=== PATIENT | female | born 1955 | race Caucasian/White ===

== ENCOUNTER 2017-05-03 21:42 | Emergency (ER) | payer OTHER ==
[2017-05-04] MEDS ORDERED: cefTRIAXone(*) 1 GM in NS 0.9% 50 ML* 50 ML IVPB ONE (01:03)
--- NOTE | 2017-05-04 01:03 | UC ---
Skin Complaint HPI - HPI Summary HPI Summary: bug bite on outer aspect of right lower leg 2 days ago---seen at urgent care and has taken 5 doses of Keflex---patient has pain out of proportion to injury in lower leg and reports the erythema has doubled in size today--feels feverish and uncomfortable - History of Current Complaint Chief Complaint: EDExtremityLower Time Seen by Provider: 05/04/17 00:53 Stated Complaint: BUG BITE/RIGHT LEG Hx Obtained From: Patient ?: No Onset/Duration: Sudden Onset, Lasting Days - 2, Worse Since - today Skin Exposure Onset/Duration: Days Ago - 2 Timing: Constant Onset Severity: Mild Current Severity: Moderate Pain Intensity: 8 Location: Discrete - right lowerer lateral leg Character: Pain, Redness Aggravating: Touch Alleviating: Treatment LAWYER: - keflex Associated Signs & Symptoms: Positive: Fever - subjective, Chills, Tenderness. Negative: Red Streaks Related History: Insect Bite/Sting - Allergy/Home Medications Allergies/Adverse Reactions: Allergies Allergy/AdvReac Type Severity Reaction Status Date / Time Ondansetron [From Zofran] Allergy Unknown Verified 06/15/14 06:25 Reaction Details Sulfa Antibiotics Allergy Rash Verified 06/15/14 06:25 Review of Systems Constitutional: Fever - subjective, Chills, Fatigue Skin: Other - worsening erythema and pain right lower leg Eyes: Negative ENT: Negative Respiratory: Negative Cardiovascular: Negative Gastrointestinal: Negative Genitourinary: Negative Motor: Negative Neurovascular: Negative Musculoskeletal: Negative Neurological: Negative Psychological: Negative All Other Systems Reviewed And Are Negative: Yes PMH/Surg Hx/FS Hx/Imm Hx Previously Healthy: No Endocrine History: Hypothyroidism - Surgical History Surgical History: Yes Surgery Procedure, Year, and Place: . ECTOPIC . [place] [facility] [place] - Family History Known Family History: Positive: None Family History: no cardiovascular issues reported in family lineage - Social History Occupation: Employed Full-time Lives: With Family Alcohol Use: Daily Alcohol Amount: 1 PER DAY Substance Use Type: None Smoking Status (MU): Former Smoker Amount Used/How Often: PACK A DAY Have You Smoked in the Last Year: No When Did the Patient Quit Smoking/Using Tobacco: 18 YEARS AGO Physical Exam Triage Information Reviewed: Yes Appearance: Well-Nourished, Ill-Appearing, Pain Distress Vital Signs: Initial Vital Signs Temp 99.5 F 05/03/17 21:56 Pulse 87 05/03/17 21:56 Resp 18 05/03/17 21:56 BP 146/97 05/03/17 21:56 Pulse Ox 97 05/03/17 21:56 Vital Signs Reviewed: Yes Eye Exam: Normal Eyes: Positive: Conjunctiva Clear ENT Exam: Normal ENT: Positive: Normal ENT inspection, Hearing grossly normal. Negative: Nasal congestion, Nasal drainage, Trismus, Muffled/hoarse voice Dental Exam: Normal Neck exam: Normal Neck: Positive: 1 Respiratory Exam: Normal Respiratory: Positive: Chest non-tender, No respiratory distress, No accessory muscle use Cardiovascular Exam: Normal Cardiovascular: Positive: RRR, No Murmur, Pulses Normal, Brisk Capillary Refill Musculoskeletal Exam: Normal Musculoskeletal: Positive: Strength Intact, ROM Intact, No Edema Neurological Exam: Normal Neurological: Positive: Alert, Muscle Tone Normal Psychological Exam: Normal Psychological: Positive: Normal Response To Family Skin Exam: Other - lower outer aspect of right leg Skin: Positive: significant lesion(s) Re-Evaluation - Re-Evaluation First Eval Change: Unchanged - report to Dr. Frank for continued care Course/Dx - Course Course Of Treatment: case reported to Dr. Willis to assume care - Differential Diagnoses - Skin Complaint Differential Diagnoses: Abscess, Cellulitis, Contact Dermatitis, Impetigo, Poison Nadia, Tick Born Illness - Diagnoses Provider Diagnoses: cellulitis Discharge - Discharge Plan Condition: Stable Disposition: HOME Patient Education Materials: Cellulitis (ED) Referrals: Gerardo Velásquez MD [Primary Care Provider] - 3 Days Additional Instructions: Continue course of treatment with Keflex at home.
[2017-05-04] MEDS ORDERED: NS 0.9% 1000 ML* 1,000 ML IV SCH (01:15)
[2017-05-04 02:17] LABS: Hematocrit 38 % (35-47); Mean Corpuscular HGB Conc 34 g/dl (31-36); Mean Corpuscular Hemoglobin 32 pg (27-31); Mean Corpuscular Volume 95 fL (80-97); Mean Platelet Volume 8 um3 (7.4-10.4); Red Blood Count 4.04 10^6/ul (4.0-5.4); Red Cell Distribution Width 14 % (10.5-15); White Blood Count 9.1 10^3/ul (3.5-10.8)
[2017-05-04 02:28] LABS: Albumin 4.5 g/dL (3.2-5.2); BUN/Creatinine Ratio 20.5 (8-20); C Reactive Protein 27.09 mg/L (< 5.00); Calcium 9.5 mg/dL (8.6-10.3); EGFR Non-African American 65.3 (>60); Globulin 2.9 g/dL (2-4); Potassium 3.8 mmol/L (3.5-5.0); Total Bilirubin 1.7 mg/dL (0.2-1.0); Total Protein 7.4 g/dL (6.4-8.9)
[2017-05-04] MEDS ORDERED: Acetaminophen TAB* 325 MG PO ONE (03:30)
[2017-05-04 04:47] VITALS: BP 128/64
--- NOTE | 2017-05-04 08:04 | RAD ---
Indication: Soft tissue swelling. 2 views of the right lower leg demonstrates no fracture. No other bone or joint abnormality is identified. IMPRESSION: No fracture of the right lower leg is noted.
== END 2017-05-04 04:44 | disposition home or self-care (01) ==
LOC: ED 21:42
DX: L03.90 Cellulitis, unspecified (principal); R50.9 Fever, unspecified; R68.83 Chills (without fever); Z87.891 Personal history of nicotine dependence
CPT/HCPCS: 36415; 80053; 83605; 85025; 86140; 87040; 99283; A9270-GY; J0696

== ENCOUNTER 2017-05-28 12:37 | Inpatient (IN) | payer OTHER ==
[2017-05-28] MEDS ORDERED: NS 0.9% 1000 ML* 1,000 ML IV ONE ×2 (14:17→18:16)
[2017-05-28] MEDS ORDERED: Ketorolac INJ* 30 MG/ML 1 ML VIAL IV ONE (14:18)
[2017-05-28 14:37] LABS: Urine Bacteria Absent (Absent)
[2017-05-28] MEDS ORDERED: Morphine INJ* 4 MG/ML 1 ML SYRINGE IV ONE (16:04)
--- NOTE | 2017-05-28 16:07 | RAD ---
CLINICAL HISTORY: Hematuria and lower abdominal pain x2 days COMPARISON: CT abdomen pelvis dated December 20, 2015 TECHNIQUE: Noncontrast CT examination of the abdomen and pelvis from the lung bases through the initial tuberosities. FINDINGS: VISUALIZED LUNG BASES: The visualized lung bases are grossly clear. There is no pleural effusion. ABDOMEN AND PELVIS: Evaluation of the solid organs and vasculature is limited without intravenous contrast. Similar the prior CT examination, the liver is homogenously hypoattenuating. The spleen, pancreas and adrenal glands are grossly normal in appearance. The gallbladder is normal. The left kidney is normal in appearance without focal mass, calcification or signs of hydronephrosis. There is mild to moderate right renal hydronephrosis with mild perinephric stranding. The right ureter is mildly dilated up to 6 mm in diameter exhibiting a mild degree of periureteral stranding. No renal calculi are identified in the right collecting system, ureter or the urinary bladder. The small and large bowel are not distended.The patient's normal appendix is identified in the right lower quadrant (coronal image 42). There is no gross retroperitoneal or mesenteric lymphadenopathy. The pelvic viscera is normal in appearance. The abdominal aorta and iliac arteries are normal in course and diameter. 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 Intramuscular lipoma which appears to be house within the sheath of the right rectus femoris measures up to 6 x 6 cm in the axial plane (image 198). Degenerative changes include multilevel loss of intervertebral disc height involving the lower thoracic and lumbar spine. Degenerative changes are most advanced at L3/L4 and L2/L3.. There is a stable vertebral body hemangioma at the T11 vertebral body.There are no sinister bone lesions. IMPRESSION: 1. There is mild to moderate right renal hydronephrosis with perinephric stranding extending down along the right ureter. No renal calculus is identified. These findings could be due to a recently passed renal stone or could be seen in the setting of pyelonephritis. 2. 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 3. Hepatic steatosis. 4. Additional chronic and degenerative changes described in the body of the report.
[2017-05-28] MEDS ORDERED: Phenazopyridine TAB* 100 MG PO ONE (16:13)
[2017-05-28] MEDS ORDERED: cefTRIAXone(*) 1 GM in NS 0.9% 50 ML* 50 ML IVPB ONE (16:13)
[2017-05-28 17:33] LABS: Corrected Retic Count 1.7 % (0.5-1.5); Hematocrit 39 % (35-47); Hemoglobin 13.2 g/dl (12.0-16.0); Maturation Factor Retic 1.5; Mean Corpuscular HGB Conc 34 g/dl (31-36); Mean Corpuscular Hemoglobin 32 pg (27-31); Mean Corpuscular Volume 95 fL (80-97); Mean Platelet Volume 9 um3 (7.4-10.4); Red Blood Count 4.06 10^6/ul (4.0-5.4); Red Cell Distribution Width 13 % (10.5-15)
[2017-05-28 17:45] LABS: Albumin 4.2 g/dL (3.2-5.2); BUN/Creatinine Ratio 15.5 (8-20); C Reactive Protein 16.16 mg/L (< 5.00); Calcium 8.8 mg/dL (8.6-10.3); EGFR African American 75.1 (>60); EGFR Non-African American 58.4 (>60); Globulin 2.9 g/dL (2-4); Potassium 3.9 mmol/L (3.5-5.0); Total Bilirubin 1.8 mg/dL (0.2-1.0); Total Protein 7.1 g/dL (6.4-8.9)
[2017-05-28] MEDS ORDERED: Acetaminophen ADULT LIQ* 650 MG/20.3 ML UDC PO ONE (18:05)
[2017-05-28 18:08] LABS: Comments Flag Yes
[2017-05-28 18:13] LABS: Add Diff/Slide Review? Slide Review Added
[2017-05-28] MEDS ORDERED: Ciprofloxacin 400MG IVPREMIX(* 400 MG/200 ML BAG IVPB ONE (18:26)
[2017-05-28] MEDS ORDERED: NS 0.9% 1000 ML* 2,000 ML IV ONE (18:34)
[2017-05-28] MEDS ORDERED: NS 0.9% 1000 ML* 1,000 ML IV SCH (18:45)
--- NOTE | 2017-05-28 20:04 | ED ---
Nicholas Allen Angela, scribed for Ziyad Chisholm MD on 05/28/17 at 1504 . Abdominal Pain/Female - HPI Summary HPI Summary: 62 y/o female presents to the ED c/o abdominal pain radiating to her R side a/w hematuria x2 days. Pt reports that at onset her urine was pink and had lower abdominal pain. Pt reports blood clots in her urine, subjective fever, chills but denies back pain. Pt denies any history of kidney stones. - History of Current Complaint Chief Complaint: EDAbdPain Stated Complaint: BLOOD IN URINE Time Seen by Provider: 05/28/17 14:43 Hx Obtained From: Patient Onset/Duration: Gradual Onset, Still Present Timing: Constant Pain Intensity: 10 Location: Suprapubic Radiates: Yes Radiates to: RLQ Aggravating Factor(s): Nothing Alleviating Factor(s): Nothing Associated Signs and Symptoms: Positive: Other: - Hematuria. Negative: Back Pain Allergies/Adverse Reactions: Allergies Allergy/AdvReac Type Severity Reaction Status Date / Time Ondansetron [From Zofran] Allergy Unknown Verified 06/15/14 06:25 Reaction Details Sulfa Antibiotics Allergy Rash Verified 06/15/14 06:25 PMH/Surg Hx/FS Hx/Imm Hx Endocrine/Hematology History: Reports: Hx Thyroid Disease Cardiovascular History: Reports: Hx Valvular Heart Disease - MVP Denies: Hx Pacemaker/ICD Respiratory History: Denies: Other Respiratory Problems/Disorders GI History: Denies: Other GI Disorders Musculoskeletal History: Reports: Hx Arthritis - OSTEO, KNEES Sensory History: Reports: Hx Contacts or Glasses - GLASSES Denies: Hx Hearing Aid Opthamlomology History: Reports: Hx Contacts or Glasses - GLASSES Neurological History: Denies: Other Neuro Impairments/Disorders Psychiatric History: Denies: Hx Panic Disorder - Cancer History Hx Chemotherapy: No Hx Radiation Therapy: No - Surgical History Surgery Procedure, Year, and Place: . [place] . [place] [facility] [place] Anesthesia Reactions: Yes - N/V, HEADACHE Infectious Disease History: No Infectious Disease History: Denies: Traveled Outside the [place] in Last 30 Days - Family History Known Family History: Positive: None Family History: no cardiovascular issues reported in family lineage - Social History Alcohol Use: Weekly Alcohol Amount: 1 PER DAY Substance Use Type: Reports: None Smoking Status (MU): Former Smoker Amount Used/How Often: PACK A DAY Have You Smoked in the Last Year: No Review of Systems Positive: Fever, Chills Positive: Abdominal Pain Positive: hematuria Positive: Other - NEGATIVE: back pain All Other Systems Reviewed And Are Negative: Yes Physical Exam - Summary Physical Exam Summary: General: well-appearing, mild pain distress Skin: warm, color reflects adequate perfusion, dry Head: normal Eyes: EOMI, HIGINIO ENT: normal Neck: supple, nontender Respiratory: CTA, breath sounds present Cardiovascular: RRR Abdomen: soft, tenderness to the suprapubic area and RLQ. No flank tenderness. Bowel: present Musculoskeletal: normal, strength/ROM intact Neurological: normal, sensory/motor intact, A&O x3 Psychological: affect/mood appropriate Triage Information Reviewed: Yes Vital Signs On Initial Exam: Initial Vitals Temp Pulse Resp BP Pulse Ox 98.5 F 73 20 146/82 97 05/28/17 12:40 05/28/17 12:40 05/28/17 12:40 05/28/17 12:40 05/28/17 12:40 Vital Signs Reviewed: Yes - [place] Coma Scale Coma Scale Total: 15 Diagnostics - Vital Signs Vital Signs Temp Pulse Resp BP Pulse Ox 05/28/17 14:05 97.4 F 82 16 130/71 98 05/28/17 12:40 98.5 F 73 20 146/82 97 - Laboratory Lab Results: Lab Results 05/28/17 Range/Units 13:50 Urine Color Red A Urine Appearance Cloudy Urine pH TNP Ur Specific [place] 1.011 (1.010-1.030) Urine Protein TNP Urine Ketones TNP Urine Blood TNP Urine Nitrate TNP Urine Bilirubin TNP Urine Urobilinogen TNP Ur Leukocyte Esterase TNP Urine WBC (Auto) Trace(0-5/hpf) (Absent) Urine RBC (Auto) 3+(>10/hpf) H (Absent) Urine Bacteria Absent (Absent) Urine Glucose TNP Urine Ascorbic Acid TNP Result Diagrams: 05/28/17 17:10 05/28/17 17:10 Lab Statement: Any lab studies that have been ordered have been reviewed, and results considered in the medical decision making process. - CT CT Abd/Pelvis CT Interpretation: Positive (See Comments) - IMPRESSION: 1. There is mild to moderate right renal hydronephrosis with perinephric stranding extending down along the right ureter. No renal calculus is identified. These findings could be due to a recently passed renal stone or could be seen in the setting of pyelonephritis. 2. 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 3. Hepatic steatosis. 4. Additional chronic and degenerative changes described in the body of the report. CT Interpretation Completed By: Radiologist Abdominal Pain Fem Course/Dx - Course Course Of Treatment: PATIENT STARTED WITH RIGORS AFTER PO PYRIDIUM AND DURING IV ROCEPHIN. THE ROCEPHIN WAS STOPPED. DISCUSSED WITH DR LOVE. IVF GIVEN AND CIPRO IV ORDERED. HOSPITALIST SAW PATIENT IN ED AND ADMITTED TO ICU. - Diagnoses Provider Diagnoses: Abdominal pain, Pyelonephritis, Sepsis Discharge - Discharge Plan Condition: Guarded Disposition: ADMITTED TO [facility] The documentation as recorded by the Nicholas fountain Angela accurately reflects the service I personally performed and the decisions made by , Ziyad Chisholm MD.
--- NOTE | 2017-05-28 23:20 | HP ---
CC: Dr. Velásquez * HOSPITAL MEDICINE HISTORY AND PHYSICAL: DATE OF ADMISSION: 05/28/17 PRIMARY CARE PHYSICIAN: Dr. Velásquez. ATTENDING PHYSICIAN: Kami Crowell MD *(dictation provided by Jennifer Mclean NP) . CHIEF COMPLAINT: Back, flank pain with hematuria. HISTORY OF PRESENT ILLNESS: Ms. Loza is a 62-year-old female with a past medical history of cold agglutinin disease and hypothyroidism who presents to the hospital today with concern for blood in her urine, weakness, abdominal and flank pain. Ms. Loza states that she began feeling unwell on Thursday at 10 p.m. She noted discomfort in her abdomen that felt like menstrual cramps. She thereafter passed urine that was filled with blood and clots. The next morning she noted that the blood seemed to have improved, but that the urine was very foul smelling. By 5 p.m., she had spoken with Dr. Velásquez and made an appointment for the following day. On Thursday, she saw Dr. Velásquez and it was felt that the urine had improved. She arranged to have labs drawn the following day, which was today at 9:30. Through the day today, she has had increasing pain to the point where she states it is unbearable. The pain seems to be arising from the groin up the left side and then to the flank. She has had nausea and vomiting x1. The patient was called by Dr. Velásquez and told that she should come to the emergency room for evaluation. Labs at that time showed white blood cell count of 9, CRP at 11. In the emergency room, Ms. Loza developed a fever. Her temperature is up to 103.5, she has related tachycardia with a heart rate running almost up to 130. Her blood pressure is running 156/78. She has complained of severe pain in the left side up into the flank that is improved with morphine. She is requiring 2 L of oxygen to maintain an O2 saturation greater than 90%. She has repeat labs showing a leukopenia with white blood cell count of 3 and thrombocytopenia with platelets of 115. She had a CT abdomen and pelvis which showed "mild to moderate right renal hydronephrosis with perinephric stranding extending down along the right ureter. These findings could be due to a recently passed renal stone or could be seen in the setting of pyelonephritis and sepsis secondary to pyelonephritis." The patient was given ceftriaxone and Pyridium in the emergency room and very shortly there after she developed rigors. There was concern that perhaps this was related to the ceftriaxone or Pyridium, however, this was also in the setting of new fever to 103. Ms. 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 This year she makes note of the fact that she has had pneumonia 3 times, first in July, then in September and then again in December. She was treated with antibiotics for all 3 of those infections. She also reports having what she describes as a spider bite to her right calf, which was treated with 3 weeks of Keflex and clindamycin with good resolution of symptoms recently. PAST MEDICAL HISTORY: 1. Cold agglutinin disease. 2. Hypothyroidism. MEDICATIONS: 1. Biotin 5000 mcg p.o. daily. 2. Cholecalciferol 400 units p.o. daily. 3. Co-enzyme Q10 of 200 mg p.o. daily. 4. Folic acid 1 mg p.o. daily. 5. Levothyroxine 100 mcg p.o. daily. 6. Multivitamin with mineral 1 tab p.o. daily. 7. Vitamin E 400 units p.o. daily. ALLERGIES: ONDANSETRON and SULFA ANTIBIOTICS. FAMILY HISTORY: The patient reports her mother at 39 related to a nonmalignant brain tumor and her dad in his 50s due to hepatic encephalopathy. SOCIAL HISTORY: The patient was a former smoker, she quit 25 years ago. She drinks alcohol very occasionally. There is no reported drug use. She reports that her would be the healthcare proxy. REVIEW OF SYSTEMS: A 14-point review of systems was completed with Ms. Loza and all those not mentioned above were negative. PHYSICAL EXAMINATION GENERAL: Ms. Loza is lying in the bed. She is in no acute distress. VITAL SIGNS: Temperature 103.5, heart rate 108 to 126, O2 saturation 93% on room air, blood pressure 156/78. LUNGS: Clear to auscultation bilaterally with no accessary muscle use and good aeration. HEART: S1, S2. No murmur, rub, or gallop and regular. ABDOMEN: Soft. She reports some tenderness in her lower abdomen but states that her bladder feels very full. Bowel sounds are positive. EXTREMITIES: No cyanosis or edema. NEURO: She is alert, she is oriented x3. She moves all extremities equally. There is no facial asymmetry or focal weakness. SKIN: Intact. Scar to right calf consistent with report of recent healed "spider bite." DIAGNOSTIC STUDIES/LAB DATA: WBC 3.0, hemoglobin 13.2, hematocrit 39, platelet count 115,000. INR 0.92. Sodium 139, potassium 3.9, chloride 106, serum bicarbonate 24, BUN 15, creatinine 0.97, glucose 104. Lactic acid 1.8. CRP 16.16. Urine shows blood and is otherwise not able to be processed due to the amount of blood in the sample. Abdomen and pelvis CT is read as follows: "There is mild amount of right renal hydronephrosis with perinephric stranding distending down along the right ureter. No renal calculus was identified. These findings could be due to a recently passed renal stone or could be seen in the setting of pyelonephritis. 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 Hepatic steatosis, additional chronic and degenerative changes described in the body of the report." ASSESSMENT/PLAN: Mrs. Loza is a 62-year-old female with past medical history of cold agglutinin disease and hypothyroidism who presents to the hospital today with concern for back and flank pain, weakness, hematuria and now fever with rigors. 1. Sepsis secondary to pyelonephritis. I am quite concerned that she is developing gram negative bacteremia given her fever, rigors, tachycardia, new O2 requirement, leukopenia, and thrombocytopenia. Blood cultures are pending. She received ceftriaxone in the emergency room and plan to switch over to Zosyn. The patient is reluctant to take ciprofloxacin as she believes that it will negatively interact with her cold agglutinin disease. She has had 3 L of IVF in the emergency room, plan for one additional liter and then start maintenance fluids at 150 mL per hour. Adjustment of fluids will be made based on clinical course. Her lactic acid is normal. 2. Cold agglutinin disease. I have reviewed the patient's case with Dr. Tish Carrera over the phone and she confirms that the patient would not have to be immunocompromised unless she was on treatment for cold agglutinin disease, which she is not. The patient is showing no evidence of anemia or other symptom of cold agglutinin response. 3. Hypothyroidism, continue levothyroxine. 4. DVT prophylaxis with heparin subcu. 5. Disposition to the ICU. TIME SPENT: Approximately 75 minutes was spent in the admission of this patient , more than half the time spent with the patient reviewing the events leading up to this hospitalization, performing the physical examination, reviewing the plan of care. JENNIFER MCLEAN NP [id number]/[facility] #: [id number] CHARAN
[2017-05-28] MEDS: Heparin VIAL(*) 5000 UNITS/ML VIAL (FIVE THOUSAND) SUBCUT SCH (23:38)
[2017-05-28] MEDS: Morphine INJ* 4 MG/ML 1 ML SYRINGE IV PRN (23:39)
[2017-05-29] MEDS: Heparin VIAL(*) 5000 UNITS/ML VIAL (FIVE THOUSAND) SUBCUT SCH ×3 (06:25→22:19)
[2017-05-29] MEDS: Morphine INJ* 4 MG/ML 1 ML SYRINGE IV PRN ×2 (06:26→11:12)
[2017-05-29 06:38] LABS: Hematocrit 36 % (35-47); Hemoglobin 12.2 g/dl (12.0-16.0); Mean Corpuscular HGB Conc 34 g/dl (31-36); Mean Corpuscular Hemoglobin 33 pg (27-31); Mean Corpuscular Volume 96 fL (80-97); Mean Platelet Volume 9 um3 (7.4-10.4); Red Blood Count 3.74 10^6/ul (4.0-5.4); Red Cell Distribution Width 14 % (10.5-15); White Blood Count 14.1 10^3/ul (3.5-10.8)
[2017-05-29 06:41] LABS: Add Diff/Slide Review? Slide Review Added; Comments Flag Yes
[2017-05-29] MEDS ORDERED: Ciprofloxacin 400MG IVPREMIX(* 400 MG/200 ML BAG IVPB SCH (07:00)
[2017-05-29 07:06] LABS: BUN/Creatinine Ratio 17.2 (8-20); Calcium 7.5 mg/dL (8.6-10.3); EGFR African American 85.1 (>60); EGFR Non-African American 66.2 (>60)
[2017-05-29 07:51] LABS: Potassium 3.7 mmol/L (3.5-5.0)
--- NOTE | 2017-05-29 07:59 | PN ---
Subjective - Subjective Reason for Note: Progress Note History: Amanda Loza is a 62 year old primary care patient at my medical office. She has a history of cold agglutinin hemolytic anemia. She had 3 days of work related stress which resolved. She developed an acute episode that felt like acute hemolysis from cold agglutinin disease - she had not had any triggers such as cold exposure. She developed red urine and came into my office to see me 05/27/17. She had one episode of feeling cold. She had a feeling of bloating in her abdomen. I sent her for blood work/urine testing - she was unable to do this right away as she had to return to work. She woke yesterday at 3 am and had an episode of hematuria, pain and felt exhausted and overwhelmed. She went to the hospital and had the tests I requested (I was concerned to rule out hemoglobinuria as well as a UTI). The labs were as follows: Laboratory Tests 05/28/17 05/28/17 05/28/17 08:30 08:40 08:40 WBC 9.0 Hgb 13.8 Hct 41 Plt Count 137 L Neut % (Auto) 65.9 Lactate Dehydrogenase 203 C-Reactive Protein 11.85 H Urine WBC (Auto) 3+(>20/hpf) H Urine RBC (Auto) 3+(>10/hpf) H She left a message on my office phone and I called her back. She was having pain and hematuria so I sent her to the emergency room. She had 10/10 flank and low abdominal pain, then had a rigor. This was associated with pyridium, hanging ceftriaxone and levofloxacin. Morphine relieved her pain and she was started on piperacillin/tazobactam. A CT scan showed no renal stone, but right hydronephrosis and perinephric stranding extending alongside the ureter. Overnight, her pain has been controlled, she has had x 1 urination with dark "black" urine. Her temperature has been rising slowly. She states her pain goes up to 5/10 when the morphine is wearing off and would be much higher. It is now situated in the right groin and renal area. She had nausea and vomiting yesterday, but doesn't feel nausea today. Of note - 05/04/2017 she presented to my office with a circular lesion on her right lower leg. It was surrounded by erythema. This was cellulitis and I treated her with a prolonged course of oral cephalexin and clindamycin for extra Staph coverage. 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 History of paroxysmal atrial tachycardia (Chronic) Z86.79 Hypercholesteremia (Chronic) E78.00 Hypothyroidism (acquired) (Chronic) E03.9 Mitral valve prolapse (Chronic) I34.1 Current Medications: Current Medications Acetaminophen (Tylenol Tab*) 650 mg PO Q6H PRN PRN Reason: pain/fever Heparin Sodium (Porcine) (Heparin Vial(*)) 5,000 units SUBCUT Q8HR [facility] Last Admin: 05/29/17 06:25 Dose: 5,000 units Sodium Chloride (Ns 0.9% 1000 Ml*) 1,000 mls @ 150 mls/hr IV PER RATE [facility] Last Admin: 05/28/17 21:43 Dose: 150 mls/hr Piperacillin Sod/Tazobactam (Sod 3.375 gm/ Sodium Chloride) 100 mls @ 25 mls/ hr IVPB Q8H [facility] Last Admin: 05/29/17 03:53 Dose: 25 mls/hr Morphine Sulfate (Morphine Inj (Syringe)*) 4 mg IV Q4H PRN PRN Reason: PAIN Last Admin: 05/29/17 06:26 Dose: 4 mg Prochlorperazine Edisylate (Compazine Inj*) 10 mg IV Q6H PRN PRN Reason: NAUSEA/VOMITING - Review of Systems Constitutional Symptoms: Yes: Fatigue Dermatology: Rash: No Pulmonary: Positive: Cough - new, Shortness of Breath - mild Negative: Sputum, Hemoptysis, Respiratory Distress Cardiology: Negative: Chest Pain, Palpitations, Swelling of Ankles Gastroenterology: Positive: Abdominal Pain Negative: Nausea, Vomiting, Difficulty Swallowing, Constipation, Diarrhea, Change in Bowel Habits Genital - Urinary: Positive: Dysuria, Hematuria Neurology: Negative: Headache Home Medications: Home Medications Medication Instructions Recorded Confirmed Type Biotin [Biotin/Maximum Strength] 5,000 mcg PO DAILY 05/28/17 05/28/17 History Cholecalciferol TAB* [Vitamin D 400 unit PO DAILY 05/28/17 05/28/17 History TAB*] Coenzyme Q10 (Ubidecarenone) [Co 200 mg PO DAILY 05/28/17 05/28/17 History Q-10] Folic Acid TAB* [Folvite TAB*] 1 mg PO DAILY 05/28/17 05/28/17 History Levothyroxine TAB* [Synthroid TAB*] 100 mcg PO DAILY 05/28/17 05/28/17 History Multivitamins/Minerals TAB* 1 tab PO DAILY 05/28/17 05/28/17 History [Theragran/minerals TAB*] Vitamin E CAP* 400 unit PO DAILY 05/28/17 05/28/17 History Allergies: Allergies Allergy/AdvReac Type Severity Reaction Status Date / Time Ondansetron [From Zofran] Allergy Unknown Verified 06/15/14 06:25 Reaction Details Sulfa Antibiotics Allergy Rash Verified 06/15/14 06:25 Objective - Vital Signs Vital Signs: Vital Signs 05/28/17 05/28/17 05/28/17 19:30 20:00 20:01 Temperature Pulse Rate 123 116 117 Respiratory 20 21 17 Rate Blood Pressure 128/68 114/66 (mmHg) O2 Sat by Pulse 95 95 94 Oximetry 05/28/17 05/28/17 05/28/17 20:03 20:15 20:30 Temperature 102 F Pulse Rate 120 114 112 Respiratory 18 29 22 Rate Blood Pressure 114/66 108/66 116/64 (mmHg) O2 Sat by Pulse 95 95 95 Oximetry 05/28/17 05/28/17 05/28/17 20:31 20:45 21:00 Temperature Pulse Rate 112 110 106 Respiratory 23 21 21 Rate Blood Pressure 106/67 105/65 (mmHg) O2 Sat by Pulse 95 95 96 Oximetry 05/28/17 05/28/17 05/28/17 21:01 21:16 21:30 Temperature Pulse Rate 106 105 102 Respiratory 22 28 34 Rate Blood Pressure 102/60 111/66 (mmHg) O2 Sat by Pulse 96 96 96 Oximetry 05/28/17 05/28/17 05/28/17 21:45 22:00 22:01 Temperature Pulse Rate 104 99 100 Respiratory 25 20 19 Rate Blood Pressure 92/62 104/65 (mmHg) O2 Sat by Pulse 97 96 95 Oximetry 05/28/17 05/28/17 05/28/17 22:15 22:30 22:45 Temperature Pulse Rate 104 101 99 Respiratory 25 23 20 Rate Blood Pressure 108/71 91/69 92/64 (mmHg) O2 Sat by Pulse 93 93 93 Oximetry 05/28/17 05/28/17 05/28/17 23:00 23:01 23:04 Temperature Pulse Rate 97 96 94 Respiratory 20 19 19 Rate Blood Pressure 89/56 98/55 (mmHg) O2 Sat by Pulse 93 93 92 Oximetry 05/28/17 05/28/17 05/28/17 23:05 23:15 23:30 Temperature Pulse Rate 94 94 97 Respiratory 18 18 19 Rate Blood Pressure 93/54 81/55 (mmHg) O2 Sat by Pulse 92 93 93 Oximetry 05/28/17 05/28/17 05/29/17 23:39 23:45 00:00 Temperature 99.4 F Pulse Rate 100 96 Respiratory 29 22 17 Rate Blood Pressure 96/67 93/64 (mmHg) O2 Sat by Pulse 94 93 Oximetry 05/29/17 05/29/17 05/29/17 00:04 00:05 00:15 Temperature Pulse Rate 93 96 96 Respiratory 19 20 16 Rate Blood Pressure 90/62 (mmHg) O2 Sat by Pulse 92 92 94 Oximetry 05/29/17 05/29/17 05/29/17 00:30 00:31 00:41 Temperature Pulse Rate 96 96 Respiratory 28 29 Rate Blood Pressure 96/61 (mmHg) O2 Sat by Pulse 95 95 95 Oximetry 05/29/17 05/29/17 05/29/17 00:45 01:00 01:01 Temperature Pulse Rate 95 97 95 Respiratory 17 16 15 Rate Blood Pressure 100/59 102/61 (mmHg) O2 Sat by Pulse 95 95 95 Oximetry 05/29/17 05/29/17 05/29/17 01:15 01:30 01:31 Temperature Pulse Rate 96 96 95 Respiratory 19 17 16 Rate Blood Pressure 97/63 96/62 (mmHg) O2 Sat by Pulse 95 95 95 Oximetry 05/29/17 05/29/17 05/29/17 01:45 02:00 02:01 Temperature Pulse Rate 96 94 93 Respiratory 17 29 21 Rate Blood Pressure 95/64 106/67 (mmHg) O2 Sat by Pulse 95 96 96 Oximetry 05/29/17 05/29/17 05/29/17 02:15 02:30 02:31 Temperature Pulse Rate 92 92 91 Respiratory 19 17 21 Rate Blood Pressure 101/64 106/68 (mmHg) O2 Sat by Pulse 95 95 95 Oximetry 05/29/17 05/29/17 05/29/17 02:49 03:00 03:01 Temperature Pulse Rate 92 93 92 Respiratory 17 17 15 Rate Blood Pressure 106/68 110/69 (mmHg) O2 Sat by Pulse 95 96 95 Oximetry 05/29/17 05/29/17 05/29/17 03:30 03:31 04:00 Temperature 99.5 F Pulse Rate 94 95 Respiratory 15 19 21 Rate Blood Pressure 96/65 (mmHg) O2 Sat by Pulse 96 96 Oximetry 05/29/17 05/29/17 05/29/17 04:10 04:23 04:30 Temperature Pulse Rate 84 87 Respiratory 17 32 22 Rate Blood Pressure 99/64 88/50 (mmHg) O2 Sat by Pulse 97 97 Oximetry 05/29/17 05/29/17 05/29/17 04:31 05:00 05:01 Temperature Pulse Rate 85 84 82 Respiratory 20 21 18 Rate Blood Pressure 102/76 (mmHg) O2 Sat by Pulse 96 98 97 Oximetry 05/29/17 05/29/17 05/29/17 05:30 05:31 06:00 Temperature Pulse Rate 81 81 83 Respiratory 16 15 16 Rate Blood Pressure 102/65 (mmHg) O2 Sat by Pulse 98 99 97 Oximetry 05/29/17 05/29/17 05/29/17 06:03 06:26 06:30 Temperature Pulse Rate 81 84 Respiratory 19 22 24 Rate Blood Pressure 109/65 110/67 (mmHg) O2 Sat by Pulse 98 95 Oximetry 05/29/17 05/29/17 05/29/17 06:31 07:00 07:24 Temperature 100.5 F Pulse Rate 83 88 Respiratory 25 20 Rate Blood Pressure 109/70 (mmHg) O2 Sat by Pulse 96 96 Oximetry - Intake and Output Intake and Output: Intake & Output 05/26/17 05/27/17 05/28/17 05/29/17 11:59 11:59 11:59 11:59 Intake Total 3050 Output Total 600 Balance 2450 Weight 197 lb 5.019 oz Intake: IV Fluids 2393 NS (0.9%) 2322 NS to Maintain IV Patency 71 IVPB 177 NS to Maintain IV Patency 177 Oral 480 Output: Urine 600 ADLs: Meal Record Start: 05/28/17 20: 03 Freq: 09,13,18 Status: Active Created 05/28/17 20:03 System (Rec: 05/28/17 20:03 System [id number]) Intake and Output Start: 05/28/17 12: 43 Freq: Status: Cancelled Created 05/28/17 12:43 System (Rec: 05/28/17 12:43 System [id number]) Intake and Output Start: 05/28/17 19: 10 Freq: 06,14,2200 Status: Active Created 05/28/17 19:10 [id number] (Rec: 05/28/17 19:10 BK [id number]) Document 05/28/17 22:00 [id number] (Rec: 05/28/17 23:15 [id number] ICU-C12) Document 05/29/17 06:00 [id number] (Rec: 05/29/17 06:46 [id number] ICU-C12) Intake and Output Start: 05/28/17 20: 03 Freq: 06,14,22 Status: Active Created 05/28/17 20:03 System (Rec: 05/28/17 20:03 System ICU-C14) Document 05/28/17 22:00 [id number] (Rec: 05/28/17 23:15 [id number] ICU-C12) Document 05/29/17 06:00 [id number] (Rec: 05/29/17 06:46 [id number] ICU-C12) - Physical Exam General Physical Exam Comment: Peripherally cold and clammy. Hemodynamically stable. Hydrated. She is alert and oriented - fully conversant and interested in her condition. General: No Cyanosis, No Anemia, No Jaundice, No Clubbing Eye Exam: right: PERRLA Skin: Normal: Rash Lungs and Chest: Yes: Chest Expansion Full, Chest Expansion Symetrica, Percussion Note Resonant, Vessicular Breath Sounds. No: Crackles, Wheezes Heart Rate and Rhythm: Regular JVP: Not Elevated Additional Cardiovascular: Yes: Normal Heart Sounds. No: Heart Murmur, Carotid Bruits, Pedal Edema Abdominal Exam: Yes: Soft, Abdominal Tenderness - right iliac area, Bowel Sounds Present. No: Distention, Rigidity, Abdominal Mass, Hepatomegaly, Splenomegaly, Guarding, Rebound Tenderness, Kidneys Palpable - right renal angle tenderness Results - Results Lab Results: Laboratory Results - last 24 hr 05/29/17 05/29/17 06:21 06:21 WBC 14.1 H RBC 3.74 L Hgb 12.2 Hct 36 MCV 96 MCH 33 H MCHC 34 RDW 14 Plt Count 86 L MPV 9 Neut % (Auto) 90.9 H Lymph % (Auto) 4.7 L [place] % (Auto) 3.8 Eos % (Auto) 0.2 Baso % (Auto) 0.4 Absolute Neuts (auto) 12.8 H Absolute Lymphs (auto) 0.7 L Absolute Monos (auto) 0.5 Absolute Eos (auto) 0 Absolute Basos (auto) 0.1 Absolute Nucleated RBC 0.01 Nucleated RBC % 0.1 Sodium 138 Chloride 111 Carbon Dioxide 17 L BUN 15 Creatinine 0.87 Est GFR ( Amer) 85.1 Est GFR (Non-Af Amer) 66.2 BUN/Creatinine Ratio 17.2 Glucose 95 Calcium 7.5 L Radiology Results: Patient Name: AMANDA LOZA Medical Record#: [id number] Ordering Physician: Ziyad Chisholm MD Acct.#: [id number] : 1955 Age: 62 Sex: F Location: EMERGENCY DEPARTMENT Exam Date: 05/28/17 1504 ADM Status: REG ER Order Information: CT ABD/PEL W/O Accession Number: [id number] CPT: 51415 CLINICAL HISTORY: Hematuria and lower abdominal pain x2 days COMPARISON: CT abdomen pelvis dated December 20, 2015 TECHNIQUE: Noncontrast CT examination of the abdomen and pelvis from the lung bases through the initial tuberosities. FINDINGS: VISUALIZED LUNG BASES: The visualized lung bases are grossly clear. There is no pleural effusion. ABDOMEN AND PELVIS: Evaluation of the solid organs and vasculature is limited without intravenous contrast. Similar the prior CT examination, the liver is homogenously hypoattenuating. The spleen, pancreas and adrenal glands are grossly normal in appearance. The gallbladder is normal. The left kidney is normal in appearance without focal mass, calcification or signs of hydronephrosis. There is mild to moderate right renal hydronephrosis with mild perinephric stranding. The right ureter is mildly dilated up to 6 mm in diameter exhibiting a mild degree of periureteral stranding. No renal calculi are identified in the right collecting system, ureter or the urinary bladder. The small and large bowel are not distended.The patient's normal appendix is identified in the right lower quadrant (coronal image 42). There is no gross retroperitoneal or mesenteric lymphadenopathy. The pelvic viscera is normal in appearance. The abdominal aorta and iliac arteries are normal in course and diameter. 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 Intramuscular lipoma which appears to be house within the sheath of the right rectus femoris measures up to 6 x 6 cm in the axial plane (image 198). Degenerative changes include multilevel loss of intervertebral disc height involving the lower thoracic and lumbar spine. Degenerative changes are most advanced at L3/ L4 and L2/L3.. There is a stable vertebral body hemangioma at the T11 vertebral body.There are no sinister bone lesions. IMPRESSION: 1. There is mild to moderate right renal hydronephrosis with perinephric stranding extending down along the right ureter. No renal calculus is identified. These findings could be due to a recently passed renal stone or could be seen in the setting of pyelonephritis. 2. 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 [facility] Patient Name:AMANDA LOZA MR: [id number] : 1955 3. Hepatic steatosis. 4. Additional chronic and degenerative changes described in the body of the report. <Electronically signed by Raffi Nieves MD in OV> 05/28/17 1603 Dictated By: Raffi Nieves MD Dictated Date/Time: 05/28/17 1603 Transcribed Date/Time: 05/28/17 1549 Copy to: CC:Gerardo Velásquez MD; Ziyad Chisholm MD Imaging - [facility] Imaging - [facility] Imaging - [facility] [address] [address] ph [phone]) ph ([phone]) ph ([phone]) 2 of 2 Other Results/Reports: I called microbiology - early gram negative colonies growing Assessment - Problem List Assessment: Patient Problems Gram negative sepsis (Acute) Hydronephrosis, right (Acute) Pyelonephritis, acute (Acute) Cold agglutinin disease (Chronic) History of paroxysmal atrial tachycardia (Chronic) Hypercholesteremia (Chronic) Hypothyroidism (acquired) (Chronic) Mitral valve prolapse (Chronic) Plan: Gram negative sepsis (Acute) Hydronephrosis, right (Acute)Pyelonephritis, acute (Acute) She presents with right pyelonephritis. The history is unusual in having had an episode that was resolving followed by a second episode that was more severe. In addition the degree of hydronephrosis is unusual. It is possible she passed a renal stone. Maybe it is due to blood clots. Alternatively, there may be another structural abnormality of the right kidney or medulla. I will obtain an US right kidney. I agree with the antibacterial coverage and we will have sensitivities tomorrow. - She is developing sepsis due to the gram negative organism. At present there is no strong indication of organ failure. However, I am concerned she is coughing and will obtain a CXR. I will obtain a baseline EKG. I will check for DIC. Her kidney function appears normal. Cold agglutinin disease (Chronic) There was no evidence yesterday morning of an acute episode, she is not significantly anemic today, so I don't think she has had massive hemolysis. She should be kept warm History of paroxysmal atrial tachycardia (Chronic) She is being monitored with no dysrhythmia seen thus far Hypercholesteremia (Chronic) secondary diagnosis Hypothyroidism (acquired) (Chronic) secondary diagnosis Mitral valve prolapse (Chronic) secondary diagnosis She is full code and receiving DVT prophylaxis I spoke with the patient and her sister at the bedside and informed them about the above and the concern that there may be an underlying cause of this problem. Her recent episode of cellulitis right lower leg raises the question of some underlying immune dysfunction, that may relate to her autoimmune hemolytic anemia. She has no evidence of a blood dyscrasia. I will follow this detention. Phone call to Livan Loza - [facility] [place]
[2017-05-29 08:16] LABS: Immature Granulocytes 16 % (0-9); Neutrophil % 77 % (38-83)
[2017-05-29 08:17] LABS: RBC Morphology Normal (Normal)
[2017-05-29] MEDS ORDERED: oxyCODONE TAB* 5 MG TAB PO PRN (08:49)
[2017-05-29 11:13] LABS: Fibrinogen 416 mg/dL (110.8-404.3)
[2017-05-29 11:16] LABS: Schistocytes ABSENT
[2017-05-29] MEDS: D5W 1/2 NS KCl 20 Meq 1000 ML* 1,000 ML IV SCH ×2 (11:19→23:47)
--- NOTE | 2017-05-29 11:22 | RAD ---
INDICATION: Right-sided hydronephrosis COMPARISON: CT May 28, 2017 TECHNIQUE: Longitudinal and transverse scans of the kidneys and bladder were obtained. FINDINGS: Kidneys: The kidneys are normal in size and echogenicity. No masses or calculi are seen. There is mild right-sided hydronephrosis. The right kidney measures 11.2 x 4.9 x 4.7 cm and the left kidney 11.8 x 5.2 x 4.1 cm. Bladder: The bladder is partially distended. There are no intrinsic or extrinsic masses. The prevoid volume is 141 ml and the postvoid volume is 3 ml. Ureteral jets are document bilaterally. Other: None IMPRESSION: MILD RIGHT-SIDED HYDRONEPHROSIS. NO SONOGRAPHIC EVIDENCE OF CALCULI. NORMAL BILATERAL URETERAL JETS.
--- NOTE | 2017-05-29 11:22 | RAD ---
INDICATION: Cough. RIGHT flank pain. Sepsis. Former tobacco use. COMPARISON: May 28, 2017 CT abdomen TECHNIQUE: Dual energy PA and routine lateral views of the chest were obtained. REPORT: Small RIGHT dependent pleural effusion and minimal RIGHT basilar linear consolidation likely representing atelectasis. Negative for cardiomegaly. Unremarkable central pulmonary vasculature and mediastinal contours. IMPRESSION: Small RIGHT dependent pleural effusion and minimal RIGHT basilar linear consolidation likely representing atelectasis however small inflammatory infiltrate at the RIGHT lung base is not entirely excluded.
[2017-05-29] MEDS ORDERED: traMADol TAB* 50 MG PO PRN (11:29)
[2017-05-29] MEDS: PROCHLORPERAZINE INJ 5 MG/ML 2 ML VIAL IV PRN (11:34)
[2017-05-29] MEDS: Levothyroxine TAB* 100 MCG TAB PO SCH (11:50)
[2017-05-29] MEDS ORDERED: Morphine PCA ADULT* 5 MG/ML 30 ML PCA SCH (13:00)
[2017-05-29 17:01] LABS: Potassium 3.4 mmol/L (3.5-5.0)
[2017-05-29] MEDS: Acetaminophen TAB* 325 MG PO PRN (18:21)
[2017-05-29 18:55] LABS: BUN/Creatinine Ratio 15.6 (8-20); Calcium 7.5 mg/dL (8.6-10.3); EGFR African American 81.9 (>60); EGFR Non-African American 63.7 (>60)
[2017-05-30 07:05] LABS: Hematocrit 32 % (35-47); Hemoglobin 10.6 g/dl (12.0-16.0); Mean Corpuscular HGB Conc 33 g/dl (31-36); Mean Corpuscular Hemoglobin 32 pg (27-31); Mean Corpuscular Volume 97 fL (80-97); Mean Platelet Volume 10 um3 (7.4-10.4); Red Blood Count 3.33 10^6/ul (4.0-5.4); Red Cell Distribution Width 14 % (10.5-15); White Blood Count 13.1 10^3/ul (3.5-10.8)
[2017-05-30 07:15] LABS: Add Diff/Slide Review? Slide Review Added; Comments Flag Yes
[2017-05-30 08:26] LABS: ALT 18 U/L (7-52); Albumin 3.2 g/dL (3.2-5.2); Alkaline Phosphatase 71 U/L (34-104); BUN/Creatinine Ratio 15.6 (8-20); Blood Urea Nitrogen 14 mg/dL (6-24); C Reactive Protein 134.99 mg/L (< 5.00); CO2 Carbon Dioxide 19 mmol/L (22-32); Calcium 7.6 mg/dL (8.6-10.3); Chloride 107 mmol/L (101-111); EGFR African American 81.9 (>60); EGFR Non-African American 63.7 (>60); Globulin 2.3 g/dL (2-4); Glucose 141 mg/dL (70-100); Sodium 133 mmol/L (133-145); Total Protein 5.5 g/dL (6.4-8.9)
[2017-05-30 08:56] LABS: Anion Gap 7 mmol/L (2-11)
--- NOTE | 2017-05-30 09:41 | PN ---
Subjective - Subjective Reason for Note: Progress Note History: She had severe pain yesterday morning and is traumatized by the memory of it. I started her on a morphine THERAPY TECH and she has not needed to bolus and has had excellent pain relief. She slept through the night and is feeling much better. Her urine is now pink and she has a good output. She is coughing, but has no sputum. She has no nausea or anorexia and she has no antibacterial related diarrhea. 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 History of paroxysmal atrial tachycardia (Chronic) Z86.79 Hypercholesteremia (Chronic) E78.00 Hypothyroidism (acquired) (Chronic) E03.9 Mitral valve prolapse (Chronic) I34.1 Current Medications: Current Medications Acetaminophen (Tylenol Tab*) 650 mg PO Q6H PRN PRN Reason: pain/fever Last Admin: 05/29/17 18:21 Dose: 650 mg Heparin Sodium (Porcine) (Heparin Vial(*)) 5,000 units SUBCUT Q8HR [facility] Last Admin: 05/29/17 22:19 Dose: 5,000 units Piperacillin Sod/Tazobactam (Sod 3.375 gm/ Sodium Chloride) 100 mls @ 25 mls/ hr IVPB Q8H [facility] Last Admin: 05/30/17 06:16 Dose: 25 mls/hr Potassium Chloride/Dextrose (D5w 1/2 Ns Kcl 20 Meq 1000 Ml*) 1,000 mls @ 75 mls /hr IV PER RATE [facility] Last Admin: 05/29/17 23:47 Dose: 75 mls/hr Morphine Sulfate (Morphine [employer] Helper Adult* 5 Mg/Ml) 30 mls @ 0 mls/hr THERAPY TECH .change Q24H [facility]; Per Protocol PRN Reason: Protocol Levothyroxine Sodium (Synthroid Tab*) 100 mcg PO DAILY@0600 [facility] Last Admin: 05/29/17 11:50 Dose: 100 mcg Morphine Sulfate (Morphine Inj (Syringe)*) 4 mg IV Q4H PRN PRN Reason: PAIN Last Admin: 05/29/17 11:12 Dose: 4 mg Oxycodone HCl (Roxycodone Tab*) 10 mg PO Q4H PRN PRN Reason: PAIN SCALE 1-5 Prochlorperazine Edisylate (Compazine Inj*) 10 mg IV Q6H PRN PRN Reason: NAUSEA/VOMITING Last Admin: 05/29/17 11:34 Dose: 10 mg Tramadol HCl (Ultram*) 100 mg PO Q4H PRN PRN Reason: MILD PAIN 1-5 Last Admin: 05/29/17 11:35 Dose: 100 mg Home Medications: Home Medications Medication Instructions Recorded Confirmed Type Biotin [Biotin/Maximum Strength] 5,000 mcg PO DAILY 05/28/17 05/28/17 History Cholecalciferol TAB* [Vitamin D 400 unit PO DAILY 05/28/17 05/28/17 History TAB*] Coenzyme Q10 (Ubidecarenone) [Co 200 mg PO DAILY 05/28/17 05/28/17 History Q-10] Folic Acid TAB* [Folvite TAB*] 1 mg PO DAILY 05/28/17 05/28/17 History Levothyroxine TAB* [Synthroid TAB*] 100 mcg PO DAILY 05/28/17 05/28/17 History Multivitamins/Minerals TAB* 1 tab PO DAILY 05/28/17 05/28/17 History [Theragran/minerals TAB*] Vitamin E CAP* 400 unit PO DAILY 05/28/17 05/28/17 History Allergies: Allergies Allergy/AdvReac Type Severity Reaction Status Date / Time Ondansetron [From Zofran] Allergy Unknown Verified 06/15/14 06:25 Reaction Details Sulfa Antibiotics Allergy Rash Verified 06/15/14 06:25 Objective - Vital Signs Vital Signs: Vital Signs 05/29/17 05/29/17 05/29/17 10:00 10:01 11:00 Temperature 101.4 F Pulse Rate 87 86 Respiratory 18 18 25 Rate Blood Pressure 114/69 (mmHg) O2 Sat by Pulse 93 92 Oximetry 05/29/17 05/29/17 05/29/17 11:12 11:17 11:18 Temperature Pulse Rate 94 94 Respiratory 22 23 29 Rate Blood Pressure 112/77 (mmHg) O2 Sat by Pulse 96 96 Oximetry 05/29/17 05/29/17 05/29/17 11:30 11:31 11:43 Temperature 101.2 F Pulse Rate 87 84 Respiratory 20 27 Rate Blood Pressure 125/81 (mmHg) O2 Sat by Pulse 94 97 Oximetry 05/29/17 05/29/17 05/29/17 12:00 12:01 12:30 Temperature Pulse Rate 88 91 88 Respiratory 18 20 19 Rate Blood Pressure 137/73 134/75 (mmHg) O2 Sat by Pulse 95 96 91 Oximetry 05/29/17 05/29/17 05/29/17 13:00 13:30 13:31 Temperature Pulse Rate 92 88 88 Respiratory 16 13 13 Rate Blood Pressure 119/70 109/65 (mmHg) O2 Sat by Pulse 93 96 95 Oximetry 05/29/17 05/29/17 05/29/17 14:00 14:01 14:30 Temperature Pulse Rate 88 86 83 Respiratory 14 15 16 Rate Blood Pressure 107/63 107/62 (mmHg) O2 Sat by Pulse 94 96 95 Oximetry 05/29/17 05/29/17 05/29/17 14:31 15:00 15:10 Temperature 98.5 F Pulse Rate 83 91 Respiratory 15 14 Rate Blood Pressure 106/67 (mmHg) O2 Sat by Pulse 95 96 Oximetry 05/29/17 05/29/17 05/29/17 15:30 16:00 16:01 Temperature Pulse Rate 85 79 83 Respiratory 18 14 22 Rate Blood Pressure 92/58 (mmHg) O2 Sat by Pulse 92 92 92 Oximetry 05/29/17 05/29/17 05/29/17 16:30 16:31 17:00 Temperature Pulse Rate 80 80 79 Respiratory 15 14 12 Rate Blood Pressure 111/60 101/58 (mmHg) O2 Sat by Pulse 93 92 95 Oximetry 05/29/17 05/29/17 05/29/17 17:01 17:30 17:31 Temperature Pulse Rate 79 76 75 Respiratory 11 13 12 Rate Blood Pressure 99/58 (mmHg) O2 Sat by Pulse 94 96 95 Oximetry 05/29/17 05/29/17 05/29/17 18:00 18:01 18:30 Temperature Pulse Rate 89 85 86 Respiratory 19 16 23 Rate Blood Pressure 119/76 125/69 (mmHg) O2 Sat by Pulse 91 90 93 Oximetry 05/29/17 05/29/17 05/29/17 18:31 19:00 19:01 Temperature 101.3 F Pulse Rate 86 86 89 Respiratory 17 18 20 Rate Blood Pressure 112/67 (mmHg) O2 Sat by Pulse 93 94 94 Oximetry 05/29/17 05/29/17 05/29/17 19:30 19:31 20:00 Temperature Pulse Rate 89 83 Respiratory 18 19 12 Rate Blood Pressure 111/66 99/59 (mmHg) O2 Sat by Pulse 92 89 Oximetry 05/29/17 05/29/17 05/29/17 20:01 20:30 20:31 Temperature Pulse Rate 82 81 81 Respiratory 14 13 11 Rate Blood Pressure 94/58 (mmHg) O2 Sat by Pulse 90 89 89 Oximetry 05/29/17 05/29/17 05/29/17 20:43 21:00 21:01 Temperature Pulse Rate 85 85 Respiratory 21 25 21 Rate Blood Pressure 105/65 (mmHg) O2 Sat by Pulse 90 90 Oximetry 05/29/17 05/29/17 05/29/17 21:24 21:30 21:31 Temperature 99.5 F Pulse Rate 85 81 Respiratory 15 20 Rate Blood Pressure 103/63 (mmHg) O2 Sat by Pulse 95 95 Oximetry 05/29/17 05/29/17 05/29/17 22:00 22:01 22:30 Temperature Pulse Rate 75 78 79 Respiratory 13 10 10 Rate Blood Pressure 97/67 (mmHg) O2 Sat by Pulse 96 95 96 Oximetry 05/29/17 05/29/17 05/29/17 23:00 23:01 23:30 Temperature Pulse Rate 78 80 78 Respiratory 9 14 9 Rate Blood Pressure 96/63 (mmHg) O2 Sat by Pulse 98 96 99 Oximetry 05/29/17 05/30/17 05/30/17 23:41 00:00 00:01 Temperature 99.9 F Pulse Rate 77 77 78 Respiratory 7 14 13 Rate Blood Pressure 112/66 (mmHg) O2 Sat by Pulse 98 100 99 Oximetry 05/30/17 05/30/17 05/30/17 00:30 00:47 01:00 Temperature Pulse Rate 80 79 Respiratory 14 14 Rate Blood Pressure 114/65 (mmHg) O2 Sat by Pulse 98 96 98 Oximetry 05/30/17 05/30/17 05/30/17 01:01 01:30 02:00 Temperature Pulse Rate 80 83 84 Respiratory 10 11 12 Rate Blood Pressure 115/63 (mmHg) O2 Sat by Pulse 97 97 98 Oximetry 05/30/17 05/30/17 05/30/17 02:01 02:30 03:00 Temperature Pulse Rate 85 86 87 Respiratory 12 11 12 Rate Blood Pressure 115/68 (mmHg) O2 Sat by Pulse 97 96 97 Oximetry 05/30/17 05/30/17 05/30/17 03:01 03:30 03:33 Temperature Pulse Rate 87 89 Respiratory 12 13 11 Rate Blood Pressure (mmHg) O2 Sat by Pulse 95 96 Oximetry 05/30/17 05/30/17 05/30/17 04:00 04:01 04:30 Temperature 97.7 F Pulse Rate 88 90 89 Respiratory 13 12 10 Rate Blood Pressure 114/67 (mmHg) O2 Sat by Pulse 97 96 96 Oximetry 05/30/17 05/30/17 05/30/17 05:00 05:01 05:05 Temperature Pulse Rate 87 95 Respiratory 15 19 14 Rate Blood Pressure 116/72 (mmHg) O2 Sat by Pulse 96 96 Oximetry 05/30/17 05/30/17 05/30/17 05:30 06:00 06:01 Temperature Pulse Rate 89 90 91 Respiratory 12 12 12 Rate Blood Pressure 114/64 (mmHg) O2 Sat by Pulse 94 95 95 Oximetry 05/30/17 05/30/17 05/30/17 06:30 07:00 07:01 Temperature Pulse Rate 96 88 93 Respiratory 18 25 29 Rate Blood Pressure 115/72 (mmHg) O2 Sat by Pulse 95 95 95 Oximetry - Intake and Output Intake and Output: Intake & Output 05/27/17 05/28/17 05/29/17 05/30/17 11:59 11:59 11:59 11:59 Intake Total 3520 3393 Output Total 600 1450 Balance 2920 1943 Weight 197 lb 5.019 oz 195 lb 5.273 oz Intake: IV Fluids 2393 2803 D5 1/2 NS W/ 20KCL 1037 NS (0.9%) 2322 1562 NS to Maintain IV Patency 71 204 IVPB 177 NS to Maintain IV Patency 177 Oral 950 590 Output: Urine 600 1450 Other: # Voids 2 ADLs: Meal Record Start: 05/28/17 20: 03 Freq: ,,18 Status: Active Created 05/28/17 20:03 System (Rec: 05/28/17 20:03 System ICU-C14) Document 05/29/17 09:00 [id number] (Rec: 05/29/17 10:07 [id number] ICU-C07) Document 05/29/17 13:00 [id number] (Rec: 05/29/17 14:41 [id number] ICU-C07) Document 05/29/17 18:00 [id number] (Rec: 05/29/17 18:31 [id number] ICU-C14) Intake and Output Start: 05/28/17 12: 43 Freq: Status: Cancelled Created 05/28/17 12:43 System (Rec: 05/28/17 12:43 System ED-C24) Intake and Output Start: 05/28/17 19: 10 Freq: 06,14,2200 Status: Active Created 05/28/17 19:10 [id number] (Rec: 05/28/17 19:10 BKG [id number]) Document 05/28/17 22:00 [id number] (Rec: 05/28/17 23:15 [id number] ICU-C12) Document 05/29/17 06:00 [id number] (Rec: 05/29/17 06:46 [id number] ICU-C12) Document 05/29/17 12:00 [id number] (Rec: 05/29/17 12:26 [id number] ICU-C07) Document 05/29/17 14:00 [id number] (Rec: 05/29/17 14:43 [id number] ICU-C07) Document 05/29/17 17:30 [id number] (Rec: 05/29/17 18:42 [id number] ICU-C07) Document 05/29/17 22:00 [id number] (Rec: 05/29/17 23:36 [id number] ICU-C06) Document 05/30/17 05:04 [id number] (Rec: 05/30/17 05:04 [id number] ICU-C06) Intake and Output Start: 05/28/17 20: 03 Freq: 06,14,22 Status: Complete Created 05/28/17 20:03 System (Rec: 05/28/17 20:03 System ICU-C14) Document 05/28/17 22:00 [id number] (Rec: 05/28/17 23:15 [id number] ICU-C12) Document 05/29/17 06:00 [id number] (Rec: 05/29/17 06:46 [id number] ICU-C12) Document 05/29/17 14:00 [id number] (Rec: 05/29/17 14:43 [id number] ICU-C07) - Physical Exam General: No Cyanosis, No Anemia, No Jaundice, No Clubbing Lungs and Chest: Yes: Chest Expansion Full, Chest Expansion Symetrica, Percussion Note Resonant, Vessicular Breath Sounds. No: Crackles, Wheezes Heart Rate and Rhythm: Regular JVP: Not Elevated Additional Cardiovascular: Yes: Normal Heart Sounds. No: Heart Murmur, Pedal Edema Abdominal Exam: Yes: Soft, Abdominal Tenderness - renal angle and right iliac areas, Bowel Sounds Present. No: Distention, Abdominal Mass, Hepatomegaly, Guarding, Rebound Tenderness Female Genitourinary: Positive: Normal Vaginal Exam - Extremities Cranial Nerves II-XII Intact: Yes Limbs: Normal Power - Neuro Orientation: A/O x3 Psychiatric: Normal Speech: Normal Results - Results Lab Results: Laboratory Results - last 24 hr 05/29/17 05/29/17 05/30/17 09:30 16:23 06:30 WBC RBC Hgb Hct MCV MCH MCHC RDW MPV Neut % (Auto) Lymph % (Auto) [place] % (Auto) Eos % (Auto) Baso % (Auto) Absolute Neuts (auto) Absolute Lymphs (auto) Absolute Monos (auto) Absolute Eos (auto) Absolute Basos (auto) Absolute Nucleated RBC Nucleated RBC % Schistocytes Absent Plt Count 86 L INR (Anticoag Therapy) 1.37 H APTT 37.6 H Fibrinogen 416 H D-Dimer, Quantitative > 1050 H Coag Pathologist Com Sodium 136 133 Potassium 3.4 L TNP Chloride 110 107 Carbon Dioxide 21 L 19 L Anion Gap 5 7 BUN 14 14 Creatinine 0.90 0.90 Est GFR ( Amer) 81.9 81.9 Est GFR (Non-Af Amer) 63.7 63.7 BUN/Creatinine Ratio 15.6 15.6 Glucose 129 H 141 H Calcium 7.5 L 7.6 L Total Bilirubin 1.40 H Direct Bilirubin TNP Indirect Bilirubin Not Reportable AST TNP ALT 18 Alkaline Phosphatase 71 C-Reactive Protein 134.99 H Total Protein 5.5 L Albumin 3.2 Globulin 2.3 Albumin/Globulin Ratio 1.4 05/30/17 06:30 WBC 13.1 H RBC 3.33 L Hgb 10.6 L Hct 32 L MCV 97 MCH 32 H MCHC 33 RDW 14 MPV 10 Neut % (Auto) 83.8 H Lymph % (Auto) 6.4 L [place] % (Auto) 4.4 Eos % (Auto) 3.9 Baso % (Auto) 1.5 Absolute Neuts (auto) 11.0 H Absolute Lymphs (auto) 0.8 L Absolute Monos (auto) 0.6 Absolute Eos (auto) 0.5 Absolute Basos (auto) 0.2 Absolute Nucleated RBC 0.01 Nucleated RBC % 0.1 Schistocytes Plt Count 79 L INR (Anticoag Therapy) APTT Fibrinogen D-Dimer, Quantitative Coag Pathologist Com Sodium Potassium Chloride Carbon Dioxide Anion Gap BUN Creatinine Est GFR ( Amer) Est GFR (Non-Af Amer) BUN/Creatinine Ratio Glucose Calcium Total Bilirubin Direct Bilirubin Indirect Bilirubin AST ALT Alkaline Phosphatase C-Reactive Protein Total Protein Albumin Globulin Albumin/Globulin Ratio Radiology Results: Patient Name: CELENA JOHNSON Medical Record#: [id number] Ordering Physician: Gerardo Velásquez MD Acct.#: [id number] : 1955 Age: 62 Sex: F Location: [facility] Exam Date: 05/29/17847 ADM Status: ADM IN Order Information: US RENAL AND BLADDER Accession Number: [id number] CPT: 27866 INDICATION: Right-sided hydronephrosis COMPARISON: CT May 28, 2017 TECHNIQUE: Longitudinal and transverse scans of the kidneys and bladder were obtained. FINDINGS: Kidneys: The kidneys are normal in size and echogenicity. No masses or calculi are seen. There is mild right-sided hydronephrosis. The right kidney measures 11.2 x 4.9 x 4.7 cm and the left kidney 11.8 x 5.2 x 4.1 cm. Bladder: The bladder is partially distended. There are no intrinsic or extrinsic masses. The prevoid volume is 141 ml and the postvoid volume is 3 ml. Ureteral jets are document bilaterally. Other: None IMPRESSION: MILD RIGHT-SIDED HYDRONEPHROSIS. NO SONOGRAPHIC EVIDENCE OF CALCULI. NORMAL BILATERAL URETERAL JETS. <Electronically signed by Ziyad Pate MD in OV> 05/29/17 1119 Dictated By: Ziyad Pate MD Dictated Date/Time: 05/29/17 1119 Transcribed Date/Time: 05/29/17 1109 Copy to: CC:Gerardo Velásquez MD; Kami Sánchez MD Imaging - [facility] Imaging - [facility] Imaging - [facility] [address] [address] ph [phone]) ph [phone]) ph ([phone]) 1 of 1 EKG Report: EKG INTERPRETATION ECG Report Patient Name CELENA JOHNSON Birthdate 1955 Sex F Order Number [id number] Date of ECG 05/29/2017 09:38:20 Interpretation Sinus rhythm.normal P axis, V-rate 60- 99 Borderline T abnormalities, lateral leads.T flat/neg, - ABNORMAL ECG - Electronically signed on 05/29/2017 at 17:01 by Saad Valdez DO Please go to [email or web address] website to view the EKG image Other Results/Reports: RUN DATE: 05/30/17 [facility] LAB LIVE PAGE 1 RUN TIME: [address] [place], [place] [address] Specimen Inquiry Name: CELENA JOHNSON : [address]: Gerardo Velásquez MD Acct: [id number] Unit: [id number] AGE: 62 Location: ICU [id number] Re05/28/17 SEX: F Status: ADM IN SPEC: [id number] PARTHA: 05/28/17-[address]: Ziyad Cihsholm MD REQ: [id number] RECD: 05/28/17 _ STATUS: COMP OTHR DR: Gerardo Velásquez MD SOURCE: URINE SPDESC: ORDERED: Urine Culture Procedure Result Reported Site Urine Culture Final 05/30/17- 0816 ML Organism 1 ESCHERICHIA COLI [place] Count 75-100,000 (Many) CFU/ML Organism 2 ENTEROCOCCUS FAECALIS [place] Count 10-25,000 (Moderate) CFU/ML 1. ESCHERICHIA COLI M.I.C. RX Ampicillin <=2 S Cefazolin <=4 S Cefepime <=1 S Ceftriaxone <=1 S Ciprofloxacin <=0.25 S Gentamicin <=1 S Levofloxacin <=0.12 S Meropenem <=0.25 S Nitrofurantoin <=16 S Tetracycline <=1 S Pipercillin/Tazobactam <=4 S Trimethoprim/Sulfamethoxazole <=20 S Amoxicillin/Clavulanic Acid <=2 S Aztreonam <=1 S 2. ENTEROCOCCUS FAECALIS M.I.C. RX Ampicillin <=2 S Penicillin 8 S Ciprofloxacin 1 S Gentamicin High Level R CONTINUED ON NEXT PAGE * ML = Testing performed at Main Lab DEPARTMENT OF PATHOLOGY, [address] [place] [address] Corby Kenny M.D. Director [facility] # [id number] RUN DATE: 05/30/17 [facility] LAB LIVE PAGE 2 RUN TIME: [address] [place] [address] Specimen Inquiry Patient: CELENA JOHNSON [id number] (Continued) Specimen: [id number] Collected: 05/28/17 Received: 05/28/17 ( Continued) Procedure Result Reported Site Urine Culture Final (continued) 05/30/17 2. ENTEROCOCCUS FAECALIS (continued) M.I.C. RX Levofloxacin 1 S Linezolid 2 S Nitrofurantoin <=16 S * Quinupristin/Dalfopristin 8 R * Streptomycin High Level S Tetracycline >=16 R Tigecycline <=0.12 S Vancomycin 1 S Imipenem-Deduced S * Ampicillin/Sulbactam-Deduced S * These antibiotics are not available in the [facility] Formulary Contact the Microbiology Department for any additional antibiotic reporting. Contact the Microbiology Department for any additional antibiotic reporting. * ML - MAIN LAB (PSC1) . END OF REPORT * ML = Testing performed at Main Lab DEPARTMENT OF PATHOLOGY, [address] [place] [address] Corby Kenny M.D. Director [facility] # [id number] Assessment - Problem List Assessment: Patient Problems Gram negative sepsis (Acute) Hydronephrosis, right (Acute) Pyelonephritis, acute (Acute) Cold agglutinin disease (Chronic) History of paroxysmal atrial tachycardia (Chronic) Hypercholesteremia (Chronic) Hypothyroidism (acquired) (Chronic) Mitral valve prolapse (Chronic) Plan: Gram negative sepsis (Acute)Hydronephrosis, right (Acute)Pyelonephritis, acute ( Acute) She has a polymicrobial infection with ample colony counts of E. coli and E. fecalis. I have no idea as to how she has sustained this infection - there doesn't appear to be a fistula or other source of inoculation. I am going to search for immune deficiency as she has had a recent episode of cellulitis following an insect bite. Her Neut%, fever are coming down. The CRP is rising. I think she is responding to the antibacterial and is now hemodynamicallky stable. She has no organ failure and we have therefore managed to prevent sepsis. Cold agglutinin disease (Chronic) No evidence of activation. Pain control is excellent with a morphine THERAPY TECH History of paroxysmal atrial tachycardia (Chronic) Telemetry shows NSR Hypercholesteremia (Chronic) secondary diagnosis Hypothyroidism (acquired) (Chronic) secondary diagnosis Mitral valve prolapse (Chronic) secondary diagnosis I spoke to the patient, her and sister together. I also spoke with her yesterday evening on the telephone. I think she is stable and I will transfer her to the regular floor off telemetry. I will stop IVF. I have encouraged her to drink+++ and discussed the mechanism whereby dormant bacteria can adhere to the urothelium with microfilms and the importance of flushing them off as much as possible.
[2017-05-30] MEDS: PROCHLORPERAZINE INJ 5 MG/ML 2 ML VIAL IV PRN (16:59)
[2017-05-30] MEDS: Acetaminophen TAB* 325 MG PO PRN (16:59)
[2017-05-30] MEDS: Heparin VIAL(*) 5000 UNITS/ML VIAL (FIVE THOUSAND) SUBCUT SCH ×2 (20:05→23:14)
[2017-05-30] MEDS: Levothyroxine TAB* 100 MCG TAB PO SCH (20:06)
[2017-05-30 20:11] LABS: Direct Bilirubin Redraw 0.3 mg/dL (0.03-0.18)
[2017-05-30] MEDS: Lactobacillus Acidophilu (GG)* 1 CAP CAP PO SCH (20:37)
[2017-05-30] MEDS: Levofloxacin 750 MG IVPREMIX(* 750 MG/150 ML BAG IVPB SCH (23:14)
[2017-05-31] MEDS: PROCHLORPERAZINE INJ 5 MG/ML 2 ML VIAL IV PRN (01:14)
[2017-05-31] MEDS: Acetaminophen TAB* 325 MG PO PRN (04:07)
[2017-05-31] MEDS ORDERED: Furosemide IV* 10 MG/ML 2 ML VIAL (20 MG) IV ONE (04:50)
[2017-05-31] MEDS: Levothyroxine TAB* 100 MCG TAB PO SCH (05:17)
[2017-05-31] MEDS: Heparin VIAL(*) 5000 UNITS/ML VIAL (FIVE THOUSAND) SUBCUT SCH ×3 (05:17→22:24)
--- NOTE | 2017-05-31 07:53 | PN ---
Subjective - Subjective Reason for Note: Progress Note History: She had a good day yesterday. She was asleep and awoken when the RN was adjusting her BUSINESS INTELLIGENCE MANAGER. She developed a high fever, delirium, nausea and vomiting, hypertension and her O2 saturation declined on room air into the 80s. I changed her antibacterial to levofloxacin in case she was having a reaction to penicillin. I was called again and decreased the morphine BUSINESS INTELLIGENCE MANAGER by 50%. I subsequently order IV furosemide as I was told that she has basal crackles. Subsequently she has improved and feels much better this morning. Today she has some anorexia, but no further nausea or vomiting. Her pain level is 2/10 on the BUSINESS INTELLIGENCE MANAGER. She is frightened she may have a relapse of pain, but wants to wean off the opioids. She has had no diarrhea from the antibacterials. Her urine is now completely clear and without a tinge of pink. She states since the furosemide she can take a deep breath without coughing. She is not bringing up sputum. She doesn't have chest pain or pressure/ palpitations. She feels edematous. 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 History of paroxysmal atrial tachycardia (Chronic) Z86.79 Hypercholesteremia (Chronic) E78.00 Hypothyroidism (acquired) (Chronic) E03.9 Mitral valve prolapse (Chronic) I34.1 Current Medications: Current Medications Acetaminophen (Tylenol Tab*) 650 mg PO Q6H PRN PRN Reason: pain/fever Last Admin: 05/31/17 04:07 Dose: 650 mg Heparin Sodium (Porcine) (Heparin Vial(*)) 5,000 units SUBCUT Q8HR [facility] Last Admin: 05/31/17 05:17 Dose: 5,000 units Levofloxacin/Dextrose (Levaquin 750 Mg Ivpremix(*)) 750 mg in 150 mls @ 100 mls /hr IVPB Q24H [facility] Last Admin: 05/30/17 23:14 Dose: 100 mls/hr Morphine Sulfate (Morphine Swage Tender Adult* 5 Mg/Ml) 30 mls @ 0 mls/hr BUSINESS INTELLIGENCE MANAGER Q24H ESTEBAN; Per Protocol PRN Reason: Protocol Lactobacillus Rhamnosus (Culturelle*) 1 cap PO BID ESTEBAN Last Admin: 05/30/17 20:37 Dose: 1 cap Levothyroxine Sodium (Synthroid Tab*) 100 mcg PO DAILY@0600 [facility] Last Admin: 05/31/17 05:17 Dose: 100 mcg Morphine Sulfate (Morphine Inj (Syringe)*) 4 mg IV Q4H PRN PRN Reason: PAIN Last Admin: 05/29/17 11:12 Dose: 4 mg Oxycodone HCl (Roxycodone Tab*) 10 mg PO Q4H PRN PRN Reason: PAIN SCALE 1-5 Prochlorperazine Edisylate (Compazine Inj*) 10 mg IV Q6H PRN PRN Reason: NAUSEA/VOMITING Last Admin: 05/31/17 01:14 Dose: 10 mg Tramadol HCl (Ultram*) 100 mg PO Q4H PRN PRN Reason: MILD PAIN 1-5 Last Admin: 05/29/17 11:35 Dose: 100 mg Home Medications: Home Medications Medication Instructions Recorded Confirmed Type Biotin [Biotin/Maximum Strength] 5,000 mcg PO DAILY 05/28/17 05/28/17 History Cholecalciferol TAB* [Vitamin D 400 unit PO DAILY 05/28/17 05/28/17 History TAB*] Coenzyme Q10 (Ubidecarenone) [Co 200 mg PO DAILY 05/28/17 05/28/17 History Q-10] Folic Acid TAB* [Folvite TAB*] 1 mg PO DAILY 05/28/17 05/28/17 History Levothyroxine TAB* [Synthroid TAB*] 100 mcg PO DAILY 05/28/17 05/28/17 History Multivitamins/Minerals TAB* 1 tab PO DAILY 05/28/17 05/28/17 History [Theragran/minerals TAB*] Vitamin E CAP* 400 unit PO DAILY 05/28/17 05/28/17 History Allergies: Allergies Allergy/AdvReac Type Severity Reaction Status Date / Time Ondansetron [From Zofran] Allergy Unknown Verified 06/15/14 06:25 Reaction Details Sulfa Antibiotics Allergy Rash Verified 06/15/14 06:25 Objective - Vital Signs Vital Signs: Vital Signs 05/30/17 05/30/17 05/30/17 08:00 08:01 08:30 Temperature Pulse Rate 86 83 79 Respiratory 12 14 14 Rate Blood Pressure 117/74 (mmHg) O2 Sat by Pulse 96 96 92 Oximetry 05/30/17 05/30/17 05/30/17 09:00 09:01 09:30 Temperature Pulse Rate 86 87 86 Respiratory 16 23 19 Rate Blood Pressure 128/87 (mmHg) O2 Sat by Pulse 94 93 92 Oximetry 05/30/17 05/30/17 05/30/17 09:52 10:00 10:01 Temperature Pulse Rate 82 93 Respiratory 20 12 12 Rate Blood Pressure 123/66 (mmHg) O2 Sat by Pulse 91 91 Oximetry 05/30/17 05/30/17 05/30/17 11:00 11:01 15:39 Temperature 98.3 F Pulse Rate 80 81 90 Respiratory 11 12 20 Rate Blood Pressure 108/65 124/64 (mmHg) O2 Sat by Pulse 92 91 92 Oximetry 05/30/17 05/30/17 05/30/17 19:42 20:09 21:18 Temperature 98.6 F Pulse Rate 76 Respiratory 18 12 16 Rate Blood Pressure 114/64 (mmHg) O2 Sat by Pulse 93 Oximetry 05/30/17 05/30/17 05/30/17 21:41 21:42 22:18 Temperature 97.9 F Pulse Rate 81 Respiratory 16 18 Rate Blood Pressure 140/77 (mmHg) O2 Sat by Pulse 86 94 Oximetry 05/30/17 05/31/17 05/31/17 23:49 00:00 03:38 Temperature 98.0 F 99.4 F Pulse Rate 84 101 Respiratory 16 20 Rate Blood Pressure 138/76 189/99 (mmHg) O2 Sat by Pulse 97 94 95 Oximetry 05/31/17 05/31/17 05/31/17 03:45 03:46 04:23 Temperature 101.3 F 101.3 F Pulse Rate 104 102 105 Respiratory 24 20 20 Rate Blood Pressure 182/100 180/100 180/100 (mmHg) O2 Sat by Pulse 95 94 95 Oximetry 05/31/17 05/31/17 05/31/17 04:30 05:10 05:45 Temperature 103.2 F 102.0 F Pulse Rate 101 Respiratory 14 9 Rate Blood Pressure 150/80 (mmHg) O2 Sat by Pulse 95 95 Oximetry 05/31/17 05/31/17 07:21 07:32 Temperature 100.2 F Pulse Rate 89 88 Respiratory 18 18 Rate Blood Pressure 140/82 140/82 (mmHg) O2 Sat by Pulse 95 95 Oximetry - Intake and Output Intake and Output: Intake & Output 05/28/17 05/29/17 05/30/17 05/31/17 11:59 11:59 11:59 11:59 Intake Total 3520 3743 2628.4 Output Total 600 1450 3050 Balance 2920 2293 -421.6 Weight 197 lb 5.019 oz 195 lb 5.273 oz Intake: IV Fluids 2393 2803 1058.4 D5 1/2 NS W/ 20KCL 1037 581 Levofloxacin 150 NS (0.9%) 2322 1562 236 NS to Maintain IV Patency 71 204 91.4 IVPB 177 240 Levofloxacin 150 NS to Maintain IV Patency 177 Zosyn 90 Oral 327 850 8204 Output: Urine 600 1450 3050 Other: Estimated Void Large # Bowel Movements 0 # Voids 2 1 ADLs: Meal Record Start: 05/28/17 20: 03 Freq: 09,13,18 Status: Complete Created 05/28/17 20:03 System (Rec: 05/28/17 20:03 System ICU-C14) Document 05/29/17 09:00 [id number] (Rec: 05/29/17 10:07 [id number] ICU-C07) Document 05/29/17 13:00 [id number] (Rec: 05/29/17 14:41 [id number] ICU-C07) Document 05/29/17 18:00 [id number] (Rec: 05/29/17 18:31 [id number] ICU-C14) Document 05/30/17 09:00 [id number] (Rec: 05/30/17 09:56 [id number] ICU-C06) ADLs: Meal Record Start: 05/30/17 16: 22 Freq: DAILY@0900,1400,1800 Status: Active Created 05/30/17 16:22 [id number] (Rec: 05/30/17 16:22 [id number] MED-C12) Document 05/30/17 18:00 [id number] (Rec: 05/30/17 18:52 [id number] MED-C02) Intake and Output Start: 05/28/17 12: 43 Freq: Status: Cancelled Created 05/28/17 12:43 System (Rec: 05/28/17 12:43 System ED-C24) Intake and Output Start: 05/28/17 19: 10 Freq: 06,14,2200 Status: Active Created 05/28/17 19:10 [id number] (Rec: 05/28/17 19:10 BK KARLEE-BG10) Document 05/28/17 22:00 [id number] (Rec: 05/28/17 23:15 [id number] ICU-C12) Document 05/29/17 06:00 [id number] (Rec: 05/29/17 06:46 [id number] ICU-C12) Document 05/29/17 12:00 [id number] (Rec: 05/29/17 12:26 [id number] ICU-C07) Document 05/29/17 14:00 [id number] (Rec: 05/29/17 14:43 [id number] ICU-C07) Document 05/29/17 17:30 [id number] (Rec: 05/29/17 18:42 [id number] ICU-C07) Document 05/29/17 22:00 [id number] (Rec: 05/29/17 23:36 [id number] ICU-C06) Document 05/30/17 05:04 [id number] (Rec: 05/30/17 05:04 [id number] ICU-C06) Document 05/30/17 14:00 [id number] (Rec: 05/30/17 14:22 TQT0121 ICU-M02) Document 05/30/17 18:53 [id number] (Rec: 05/30/17 18:53 [id number] MED-C02) Document 05/30/17 22:00 [id number] (Rec: 05/30/17 22:30 [id number] MED-C09) Document 05/31/17 06:00 [id number] (Rec: 05/31/17 06:46 [id number] MED-C42) Intake and Output Start: 05/28/17 20: 03 Freq: 06,14,22 Status: Complete Created 05/28/17 20:03 System (Rec: 05/28/17 20:03 System ICU-C14) Document 05/28/17 22:00 [id number] (Rec: 05/28/17 23:15 [id number] ICU-C12) Document 05/29/17 06:00 [id number] (Rec: 05/29/17 06:46 [id number] ICU-C12) Document 05/29/17 14:00 WHE2322 (Rec: 05/29/17 14:43 [id number] ICU-C07) Intake and Output Start: 05/30/17 16: 22 Freq: DAILY@0600,1400,2200 Status: Active Created 05/30/17 16:22 [id number] (Rec: 05/30/17 16:22 [id number] MED-C12) Document 05/30/17 22:00 [id number] (Rec: 05/30/17 22:30 RHV2639 MED-C09) Document 05/31/17 06:00 [id number] (Rec: 05/31/17 06:46 [id number] MED-C42) - Physical Exam General Physical Exam Comment: warm and well perfused, alert and oriented x 3 and able to give a good account of herself. She is hemodynamically stable General: No Cyanosis, No Anemia, No Jaundice, No Clubbing Eye Exam: right: EOMI Skin: Normal: Rash Lungs and Chest: Yes: Chest Expansion Full, Chest Expansion Symetrica, Percussion Note Resonant, Vessicular Breath Sounds, Crackles - a few scattered basal crackles. No: Wheezes, Respiratory Distress, Use of Accessory Muscles Heart Rate and Rhythm: Regular JVP: Not Elevated Additional Cardiovascular: Yes: Normal Heart Sounds, Pedal Edema - trace. No: Heart Murmur Abdominal Exam: Yes: Soft, Abdominal Tenderness - right renal angle, Bowel Sounds Present. No: Distention Results - Results Lab Results: Laboratory Results - last 24 hr 05/30/17 05/30/17 06:30 18:32 Sodium 133 Potassium TNP 3.5 Chloride 107 Carbon Dioxide 19 L Anion Gap 7 BUN 14 Creatinine 0.90 Est GFR ( Amer) 81.9 Est GFR (Non-Af Amer) 63.7 BUN/Creatinine Ratio 15.6 Glucose 141 H Calcium 7.6 L Total Bilirubin 1.40 H Direct Bilirubin TNP 0.30 H Indirect Bilirubin Not Reportable AST TNP 20 ALT 18 Alkaline Phosphatase 71 C-Reactive Protein 134.99 H Total Protein 5.5 L Albumin 3.2 Globulin 2.3 Albumin/Globulin Ratio 1.4 Assessment - Problem List Assessment: Patient Problems Gram negative sepsis (Acute) Hydronephrosis, right (Acute) Pyelonephritis, acute (Acute) Cold agglutinin disease (Chronic) History of paroxysmal atrial tachycardia (Chronic) Hypercholesteremia (Chronic) Hypothyroidism (acquired) (Chronic) Mitral valve prolapse (Chronic) Plan: Gram negative sepsis (Acute)Hydronephrosis, right (Acute)Pyelonephritis, acute ( Acute) She had an episode of high fever overnight (103.2F), this surprised me as her infection appeared to be coming under control. The possibilities are that this is the pyelonephritis, or possibly a penicillin drug reaction. I swapped her over to levofloxacin - both E. coli and Enterococcus fecaelis are sensitive. Cold agglutinin disease (Chronic) not exacerbated History of paroxysmal atrial tachycardia (Chronic) Hypercholesteremia (Chronic) secondary diagnosis Hypothyroidism (acquired) (Chronic) secondary diagnosis Mitral valve prolapse (Chronic) secondary diagnosis I discussed the above with the patient and in detail. I explained the puzzle over the high fever in the night. I am awaiting labwork to determine if there is a spike in her WBC/%Neuts. I will wean her down off the BUSINESS INTELLIGENCE MANAGER today. She is scared of uncontrolled pain, but also of the adverse effects of opioids. i explained the switch of antibacterials.
[2017-05-31] MEDS: Lactobacillus Acidophilu (GG)* 1 CAP CAP PO SCH ×2 (08:48→22:24)
[2017-05-31] MEDS ORDERED: traMADol TAB* 50 MG PO PRN (09:11)
[2017-05-31 09:55] LABS: Hematocrit 32 % (35-47); Hemoglobin 11.1 g/dl (12.0-16.0); Mean Corpuscular HGB Conc 35 g/dl (31-36); Mean Corpuscular Hemoglobin 32 pg (27-31); Mean Corpuscular Volume 93 fL (80-97); Mean Platelet Volume 9 um3 (7.4-10.4); Red Blood Count 3.45 10^6/ul (4.0-5.4); Red Cell Distribution Width 13 % (10.5-15)
[2017-05-31] MEDS: traMADol TAB* 50 MG PO PRN ×2 (10:01→18:00)
[2017-05-31 10:09] LABS: BUN/Creatinine Ratio 12.5 (8-20); C Reactive Protein 67.15 mg/L (< 5.00); Calcium 8.7 mg/dL (8.6-10.3); EGFR African American 105.9 (>60); EGFR Non-African American 82.3 (>60); Potassium 3.6 mmol/L (3.5-5.0)
[2017-05-31] MEDS ORDERED: Morphine PCA ADULT* 5 MG/ML 30 ML PCA SCH ×2 (21:00)
[2017-06-01] MEDS: Ibuprofen TAB* 600 MG PO SCH ×2 (00:06→09:24)
[2017-06-01] MEDS: Levofloxacin 750 MG IVPREMIX(* 750 MG/150 ML BAG IVPB SCH (00:14)
[2017-06-01] MEDS: Levothyroxine TAB* 100 MCG TAB PO SCH (06:12)
[2017-06-01] MEDS: Heparin VIAL(*) 5000 UNITS/ML VIAL (FIVE THOUSAND) SUBCUT SCH (06:12)
[2017-06-01 07:20] LABS: Hematocrit 32 % (35-47); Hemoglobin 11.1 g/dl (12.0-16.0); Mean Corpuscular HGB Conc 35 g/dl (31-36); Mean Corpuscular Hemoglobin 32 pg (27-31); Mean Corpuscular Volume 92 fL (80-97); Mean Platelet Volume 9 um3 (7.4-10.4); Red Blood Count 3.49 10^6/ul (4.0-5.4); Red Cell Distribution Width 13 % (10.5-15); White Blood Count 6.8 10^3/ul (3.5-10.8)
[2017-06-01 07:22] LABS: Add Diff/Slide Review? Slide Review Added; Comments Flag Yes
[2017-06-01 07:35] LABS: Albumin 3.4 g/dL (3.2-5.2); BUN/Creatinine Ratio 12.1 (8-20); C Reactive Protein 36.19 mg/L (< 5.00); Calcium 8.8 mg/dL (8.6-10.3); Direct Bilirubin 0.2 mg/dL (0.03-0.18); EGFR African American 117.1 (>60); Globulin 2.9 g/dL (2-4); Indirect Bilirubin 0.8 mg/dL (0.3-1.0); Potassium 3.2 mmol/L (3.5-5.0); Total Protein 6.3 g/dL (6.4-8.9)
--- NOTE | 2017-06-01 08:04 | PN ---
Subjective - Subjective Reason for Note: Discharge Note History: See dictated discharge summary. She feels better Current Medications: Current Medications Acetaminophen (Tylenol Tab*) 650 mg PO Q6H PRN PRN Reason: pain/fever Last Admin: 05/31/17 04:07 Dose: 650 mg Heparin Sodium (Porcine) (Heparin Vial(*)) 5,000 units SUBCUT Q8HR [facility] Last Admin: 06/01/17 06:12 Dose: 5,000 units Levofloxacin/Dextrose (Levaquin 750 Mg Ivpremix(*)) 750 mg in 150 mls @ 100 mls /hr IVPB Q24H [facility] Last Admin: 06/01/17 00:14 Dose: 100 mls/hr Ibuprofen (Motrin Tab*) 600 mg PO BID [facility] Last Admin: 06/01/17 00:06 Dose: 600 mg Lactobacillus Rhamnosus (Culturelle*) 1 cap PO BID [facility] Last Admin: 05/31/17 22:24 Dose: 1 cap Levothyroxine Sodium (Synthroid Tab*) 100 mcg PO DAILY@0600 [facility] Last Admin: 06/01/17 06:12 Dose: 100 mcg Prochlorperazine Edisylate (Compazine Inj*) 10 mg IV Q6H PRN PRN Reason: NAUSEA/VOMITING Last Admin: 05/31/17 01:14 Dose: 10 mg Tramadol HCl (Ultram*) 50 mg PO Q6H PRN PRN Reason: PAIN - MILD Last Admin: 05/31/17 18:00 Dose: 50 mg Tramadol HCl (Ultram*) 100 mg PO Q6H PRN PRN Reason: PAIN - MODERATE Last Admin: 05/31/17 11:50 Dose: 50 mg Home Medications: Home Medications Medication Instructions Recorded Confirmed Type Biotin [Biotin/Maximum Strength] 5,000 mcg PO DAILY 05/28/17 05/28/17 History Cholecalciferol TAB* [Vitamin D 400 unit PO DAILY 05/28/17 05/28/17 History TAB*] Coenzyme Q10 (Ubidecarenone) [Co 200 mg PO DAILY 05/28/17 05/28/17 History Q-10] Folic Acid TAB* [Folvite TAB*] 1 mg PO DAILY 05/28/17 05/28/17 History Levothyroxine TAB* [Synthroid 100 100 mcg PO DAILY 05/28/17 05/28/17 History MCG TAB*] Multivitamins/Minerals TAB* 1 tab PO DAILY 05/28/17 05/28/17 History [Theragran/minerals TAB*] Vitamin E CAP* 400 unit PO DAILY 05/28/17 05/28/17 History Levofloxacin TAB* [Levaquin 750 MG 750 mg PO DAILY #7 tab 06/01/17 Rx TAB*] Allergies: Allergies Allergy/AdvReac Type Severity Reaction Status Date / Time Ondansetron [From Zofran] Allergy Unknown Verified 06/15/14 06:25 Reaction Details Sulfa Antibiotics Allergy Rash Verified 06/15/14 06:25 Objective - Vital Signs Vital Signs: Vital Signs 05/31/17 05/31/17 05/31/17 10:01 10:08 11:50 Temperature Pulse Rate 89 Respiratory 16 18 16 Rate Blood Pressure 140/82 (mmHg) O2 Sat by Pulse 95 Oximetry 05/31/17 05/31/17 05/31/17 12:01 13:41 15:21 Temperature Pulse Rate Respiratory 18 18 20 Rate Blood Pressure (mmHg) O2 Sat by Pulse 97 Oximetry 05/31/17 05/31/17 05/31/17 15:46 17:02 18:00 Temperature 98.0 F Pulse Rate 75 Respiratory 23 18 Rate Blood Pressure 121/78 (mmHg) O2 Sat by Pulse 96 98 Oximetry 05/31/17 05/31/17 05/31/17 18:23 18:43 20:00 Temperature Pulse Rate 77 Respiratory 18 18 20 Rate Blood Pressure 121/78 (mmHg) O2 Sat by Pulse 97 97 Oximetry 05/31/17 05/31/17 06/01/17 20:46 23:52 00:00 Temperature 97.4 F 98.7 F Pulse Rate 82 78 Respiratory 23 16 Rate Blood Pressure 121/67 143/81 (mmHg) O2 Sat by Pulse 92 97 97 Oximetry 06/01/17 03:57 Temperature 98.1 F Pulse Rate 88 Respiratory 16 Rate Blood Pressure 126/80 (mmHg) O2 Sat by Pulse 92 Oximetry - Intake and Output Intake and Output: Intake & Output 05/29/17 05/30/17 05/31/17 06/01/17 11:59 11:59 11:59 11:59 Intake Total 3520 3743 2748.4 2357 Output Total 600 1450 3050 400 Balance 2920 2293 -301.6 1956 Weight 197 lb 5.019 oz 195 lb 5.273 oz Intake: IV Fluids 2393 2803 1058.4 251 D5 1/2 NS W/ 20KCL 1037 581 Levofloxacin 150 NS (0.9%) 2322 1562 236 NS to Maintain IV Patency 71 204 91.4 251 IVPB 177 240 156 Levofloxacin 150 156 NS to Maintain IV Patency 177 Zosyn 90 Oral 507 173 0932 1950 Output: Urine 600 1450 3050 400 Other: Estimated Void Large # Bowel Movements 0 0 # Voids 2 1 2 ADLs: Meal Record Start: 05/28/17 20: 03 Freq: 09,13,18 Status: Complete Created 05/28/17 20:03 System (Rec: 05/28/17 20:03 System ICU-C14) Document 05/29/17 09:00 [id number] (Rec: 05/29/17 10:07 [id number] ICU-C07) Document 05/29/17 13:00 [id number] (Rec: 05/29/17 14:41 [id number] ICU-C07) Document 05/29/17 18:00 [id number] (Rec: 05/29/17 18:31 [id number] ICU-C14) Document 05/30/17 09:00 [id number] (Rec: 05/30/17 09:56 [id number] ICU-C06) ADLs: Meal Record Start: 05/30/17 16: 22 Freq: DAILY@0900,1400,1800 Status: Active Created 05/30/17 16:22 [id number] (Rec: 05/30/17 16:22 [id number] MED-C12) Document 05/30/17 18:00 [id number] (Rec: 05/30/17 18:52 [id number] MED-C02) Document 05/31/17 09:00 [id number] (Rec: 05/31/17 10:44 [id number] MED-C11) Document 05/31/17 14:00 [id number] (Rec: 05/31/17 14:40 [id number] MED-C11) Document 05/31/17 18:00 [id number] (Rec: 05/31/17 22:50 [id number] MED-C09) Intake and Output Start: 05/28/17 12: 43 Freq: Status: Cancelled Created 05/28/17 12:43 System (Rec: 05/28/17 12:43 System ED-C24) Intake and Output Start: 05/28/17 19: 10 Freq: 06,14,2200 Status: Active Created 05/28/17 19:10 [id number] (Rec: 05/28/17 19:10 BK KARLEE-BG10) Document 05/28/17 22:00 [id number] (Rec: 05/28/17 23:15 [id number] ICU-C12) Document 05/29/17 06:00 [id number] (Rec: 05/29/17 06:46 [id number] ICU-C12) Document 05/29/17 12:00 [id number] (Rec: 05/29/17 12:26 [id number] ICU-C07) Document 05/29/17 14:00 [id number] (Rec: 05/29/17 14:43 [id number] ICU-C07) Document 05/29/17 17:30 [id number] (Rec: 05/29/17 18:42 [id number] ICU-C07) Document 05/29/17 22:00 [id number] (Rec: 05/29/17 23:36 [id number] ICU-C06) Document 05/30/17 05:04 [id number] (Rec: 05/30/17 05:04 [id number] ICU-C06) Document 05/30/17 14:00 [id number] (Rec: 05/30/17 14:22 [id number] ICU-M02) Document 05/30/17 18:53 [id number] (Rec: 05/30/17 18:53 [id number] MED-C02) Document 05/30/17 22:00 [id number] (Rec: 05/30/17 22:30 [id number] MED-C09) Document 05/31/17 06:00 [id number] (Rec: 05/31/17 06:46 [id number] MED-C42) Document 05/31/17 14:00 [id number] (Rec: 05/31/17 14:45 [id number] MED-C11) Document 05/31/17 22:00 [id number] (Rec: 05/31/17 22:52 [id number] MED-C09) Document 06/01/17 06:00 [id number] (Rec: 06/01/17 06:37 [id number] MED-C42) Intake and Output Start: 05/28/17 20: 03 Freq: 06,14,22 Status: Complete Created 05/28/17 20:03 System (Rec: 05/28/17 20:03 System ICU-C14) Document 05/28/17 22:00 [id number] (Rec: 05/28/17 23:15 [id number] ICU-C12) Document 05/29/17 06:00 [id number] (Rec: 05/29/17 06:46 [id number] ICU-C12) Document 05/29/17 14:00 [id number] (Rec: 05/29/17 14:43 [id number] ICU-C07) Intake and Output Start: 05/30/17 16: 22 Freq: DAILY@0600,1400,2200 Status: Complete Created 05/30/17 16:22 [id number] (Rec: 05/30/17 16:22 [id number] MED-C12) Document 05/30/17 22:00 [id number] (Rec: 05/30/17 22:30 [id number] MED-C09) Document 05/31/17 06:00 [id number] (Rec: 05/31/17 06:46 [id number] MED-C42) - Physical Exam General: No Cyanosis, No Anemia, No Jaundice, No Clubbing Lungs and Chest: Yes: Chest Expansion Full, Chest Expansion Symetrica, Percussion Note Resonant, Vessicular Breath Sounds. No: Crackles, Wheezes Heart Rate and Rhythm: Regular JVP: Not Elevated Additional Cardiovascular: Yes: Normal Heart Sounds, Heart Murmur. No: Pedal Edema Abdominal Exam: Yes: Soft, Abdominal Tenderness - mild right renal angle pain, Bowel Sounds Present. No: Distention, Abdominal Mass Results - Results Lab Results: Laboratory Results - last 24 hr 05/31/17 05/31/17 06/01/17 09:32 09:32 06:42 WBC 10.0 6.8 RBC 3.45 L 3.49 L Hgb 11.1 L 11.1 L Hct 32 L 32 L MCV 93 92 MCH 32 H 32 H MCHC 35 35 RDW 13 13 Plt Count 109 L 118 L MPV 9 9 Neut % (Auto) 77.2 64.6 Lymph % (Auto) 15.8 L 24.7 L [place] % (Auto) 5.9 6.5 Eos % (Auto) 0.6 3.7 Baso % (Auto) 0.5 0.5 Absolute Neuts (auto) 7.7 4.4 Absolute Lymphs (auto) 1.6 1.7 Absolute Monos (auto) 0.6 0.4 Absolute Eos (auto) 0.1 0.3 Absolute Basos (auto) 0 0 Absolute Nucleated RBC 0 0.01 Nucleated RBC % 0 0.1 Sodium 138 Potassium 3.6 Chloride 105 Carbon Dioxide 27 Anion Gap 6 BUN 9 Creatinine 0.72 Est GFR ( Amer) 105.9 Est GFR (Non-Af Amer) 82.3 BUN/Creatinine Ratio 12.5 Glucose 113 H Calcium 8.7 Total Bilirubin Direct Bilirubin Indirect Bilirubin AST ALT Alkaline Phosphatase C-Reactive Protein 67.15 H Total Protein Albumin Globulin Albumin/Globulin Ratio 06/01/ 06:42 WBC RBC Hgb Hct MCV MCH MCHC RDW Plt Count MPV Neut % (Auto) Lymph % (Auto) [place] % (Auto) Eos % (Auto) Baso % (Auto) Absolute Neuts (auto) Absolute Lymphs (auto) Absolute Monos (auto) Absolute Eos (auto) Absolute Basos (auto) Absolute Nucleated RBC Nucleated RBC % Sodium 138 Potassium 3.2 L Chloride 104 Carbon Dioxide 27 Anion Gap 7 BUN 8 Creatinine 0.66 Est GFR ( Amer) 117.1 Est GFR (Non-Af Amer) 91.0 BUN/Creatinine Ratio 12.1 Glucose 98 Calcium 8.8 Total Bilirubin 1.00 Direct Bilirubin 0.20 H Indirect Bilirubin 0.8 AST 20 ALT 18 Alkaline Phosphatase 63 C-Reactive Protein 36.19 H Total Protein 6.3 L Albumin 3.4 Globulin 2.9 Albumin/Globulin Ratio 1.2 Assessment - Problem List Assessment: Patient Problems Gram negative sepsis (Acute) Hydronephrosis, right (Acute) Pyelonephritis, acute (Acute) Cold agglutinin disease (Chronic) History of paroxysmal atrial tachycardia (Chronic) Hypercholesteremia (Chronic) Hypothyroidism (acquired) (Chronic) Mitral valve prolapse (Chronic) Plan: She is recovering well. Her WBC/%neuts and CRP are coming down. She has been afebrile for >24 hours. She will continue on oral levofloxacin 1 week. I will arrange another US of her kidney and bladder as an outpatient. Discussed with patient and .
[2017-06-01] MEDS: Lactobacillus Acidophilu (GG)* 1 CAP CAP PO SCH (09:25)
[2017-06-01 11:47] VITALS: BP 120/68
--- NOTE | 2017-06-01 15:05 | DS ---
DISCHARGE SUMMARY: DATE OF ADMISSION: 05/28/17 DATE OF DISCHARGE: 06/01/17 DISCHARGE DIAGNOSES: Right-sided pyelonephritis, polymicrobial E. coli and Enterococcus faecalis, sepsis criteria without organ failure. COMORBIDITIES: 1. Cold agglutinin hemolytic anemia. 2. History of paroxysmal atrial tachycardia. 3. Hypercholesterolemia. 4. Hypothyroidism. 5. Mitral valve prolapse. HISTORY: Amanda Loza is a 62-year-old right-handed female, her presentation is documented in [facility]' admitting history and physical. In short, she had a history in April of developing a right lower leg cellulitis, which I treated as an outpatient with clindamycin and cephalexin. She presented in a biphasic fashion, having had intermittent abdominal pain, which was on the right renal angle with hematuria. In the emergency room, she developed rigors. Examination in the emergency room: Temperature 103.5, heart rate 108 to 126, oxygen saturation 93%, blood pressure 156/78. Abdomen was soft, some tenderness in the lower abdomen. Bowel sounds positive. Oriented x3, otherwise no findings. Initial Labs: White count 3.0, hemoglobin 13.2, hematocrit 39, platelets 115. Percent neutrophils 71.3. Chemistry: CMP was within normal range except for a creatinine of 0.97, glucose of 104, total bilirubin of 1.8, a C-reactive protein of 16.6. She has normal lipase, normal liver function tests. Urine, trace white cells, 3+ red cells, absent bacteria. She met criteria for sepsis and hence was placed in the ICU. Initially treated with ceftriaxone, then was changed to piperacillin/tazobactam. IMAGING DATA: On 05/28/17, CT scan of abdomen and pelvis, impression: Mild to moderate right renal hydronephrosis, perinephric stranding extending down the right ureter, no calculus. Pyelonephritis was suggested. 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 Chest X-ray: Right dependent pleural effusion, minimal right basilar linear consolidation. EKG: Sinus rhythm, mild T-wave changes. Ultrasound of bladder and kidney, mild right-sided hydronephrosis, no sonographic evidence of calculi, normal bilateral ureteral jets. HOSPITAL COURSE: She developed severe pain in the right renal angle, which required morphine [employer]. She had episodes of rigors at night. She responded to the antibiotics. Microbiology revealed a polymicrobial urinary tract infection with E. coli colony counts 75,000 to 100,000, Enterococcus faecalis 10,000 to 25 ,000 CFU/mL. This was sensitive to multiple antibiotics including those chosen during the hospitalization. She developed one episode of fever 2 days before discharge in the evening, which was attributed to her antibiotic, though I am not convinced by this and I changed it to levofloxacin. On the day of discharge, she is feeling much better. She is off the morphine [employer]. She has 2/10 pain, which she can control with acetaminophen. She has been afebrile for more than 24 hours. She has some anorexia but no nausea or vomiting. She had a normal bowel movement. Her urine is now clear and not tinged with red. PHYSICAL EXAMINATION ON THE DAY OF DISCHARGE: Temperature 98.1, pulse 88, respirations 16, oxygen saturation 92% on room air, blood pressure 126/80. No cyanosis, anemia, jaundice, clubbing, or lymphadenopathy. Cardiovascular System : Pulse regular. Normal character and volume. Venous pressure not elevated. Heart sounds normal. No added sounds or murmurs. No pedal edema. No carotid bruits. Respiratory system: Her chest is clear. Abdomen: No distention, masses or organomegaly. She has some mild right renal angle tenderness. Nervous System: Alert and oriented x3. She is fully independent. ASSESSMENT AND PLAN: 1. Polymicrobial urinary tract infection with near sepsis but without organ compromise. She has recovered well with IV antibiotics as an outpatient. I will recheck an ultrasound of her right kidney and her bladder to ensure that she does not have any congenital abnormality that is contributing to this infection. I will continue to look for reasons for her susceptibility to infections in view of her recent cellulitis as well as this infection. She will complete another 7 days of levofloxacin orally and will use a probiotic. 2. Cold agglutinin disease. She did not have any episodes of hemolysis during this hospitalization. 3. History of paroxysmal supraventricular tachycardia, no episodes during this hospitalization. 4. Primary hypothyroidism. She will continue her usual medication. DISCHARGE MEDICATIONS: 1. Levofloxacin 750 mg daily for 7 days. 2. Multivitamin one a day. 3. Biotin 5000 mcg daily. 4. Levothyroxine 100 mcg a day. 5. Coenzyme Q10 200 mg a day. 6. Cholecalciferol 400 units a day. 7. Folic acid 1 mg a day. 8. Vitamin E 400 units a day. She will follow up as an outpatient with me this week. [id number]/[facility] #: [id number] CHARAN
== END 2017-06-01 12:15 | disposition home or self-care (01) | DRG 872 ==
LOC: ED 12:37 → ICU 19:17 → MED 05-30 15:27
PROVIDERS: ADMIT Internal Medicine; ATTEND Internal Medicine
DX: A41.50 Gram-negative sepsis, unspecified (principal); D59.1 Other autoimmune hemolytic anemias; D69.6 Thrombocytopenia, unspecified; K76.0 Fatty (change of) liver, not elsewhere classified; N13.6 Pyonephrosis; I47.1 Supraventricular tachycardia; B96.20 Unspecified Escherichia coli [E. coli] as the cause of diseases classified elsewhere; B95.2 Enterococcus as the cause of diseases classified elsewhere; E78.00 Pure hypercholesterolemia, unspecified; E03.9 Hypothyroidism, unspecified; I34.1 Nonrheumatic mitral (valve) prolapse; D72.819 Decreased white blood cell count, unspecified; Z87.891 Personal history of nicotine dependence; Z83.79 Family history of other diseases of the digestive system; Z79.899 Other long term (current) drug therapy; Z88.8 Allergy status to other drugs, medicaments and biological substances; Z88.2 Allergy status to sulfonamides; M51.36 Other intervertebral disc degeneration, lumbar region
CPT/HCPCS: 36415; 71020; 74176; 76770; 80048; 80053; 80076; 81003; 83010; 83050; 83605; 83615; 83690; 85025; 85045; 85049; 85362; 85384; 85610; 85730; 86140; 86157; 86703; 87040; 87077; 87086; 87186; 87641; 93005; 94760; A9270-GY; J0696; J0780; J1644; J1885; J1940; J2270; J2543